=== PATIENT | female | born 2000 | race Caucasian/White ===

== ENCOUNTER 2022-08-10 15:24 | Outpatient (REF) | payer OTHER, SELFPAY ==
[2022-08-10 18:35] LABS: Lipase 15 U/L (8-78)
[2022-08-10 19:13] LABS: Vitamin B12 834 pg/mL (200-900)
[2022-08-13 16:43] LABS: Transglutaminase Ab IgG <1.0 U/mL; Transglutaminase IgA <1.0 U/mL
[2022-08-16 15:13] LABS: Vitamin D 25-OH, D2 <4 ng/mL; Vitamin D 25-OH, D3 16 ng/mL; Vitamin D 25-OH, Total 16 ng/mL (30-100)
== END 2022-08-10 15:25 | disposition home or self-care (01) ==
LOC: HO.LAB 15:24
PROVIDERS: PCP Pediatrics Adolescent Medicine; Visit Provider Nurse Practitioner Family
DX: R10.9 Unspecified abdominal pain (principal); E55.9 Vitamin D deficiency, unspecified; R19.7 Diarrhea, unspecified; K29.70 Gastritis, unspecified, without bleeding
CPT/HCPCS: 36415; 82306; 82607; 82746; 83690; 86364; 99202

== ENCOUNTER 2022-08-27 14:05 | Outpatient (REF) | payer OTHER, SELFPAY ==
[2022-09-02 09:08] LABS: H Pylori Breath Test Negative (Negative)
== END 2022-08-27 14:06 | disposition home or self-care (01) ==
LOC: HO.LNP 14:05
PROVIDERS: PCP Pediatrics Adolescent Medicine; Visit Provider Nurse Practitioner Family
DX: K21.9 Gastro-esophageal reflux disease without esophagitis (principal); K59.01 Slow transit constipation; R10.13 Epigastric pain; R11.0 Nausea; R79.89 Other specified abnormal findings of blood chemistry; K29.70 Gastritis, unspecified, without bleeding
CPT/HCPCS: 36415; 83013; 99212

== ENCOUNTER 2022-09-21 11:05 | Day surgery (SDC) | payer OTHER, SELFPAY ==
[2022-09-17 08:20] VITALS: BMI 27.6
[2022-09-21 11:54] VITALS: BMI 26.9
--- NOTE | 2022-09-21 12:05 | MHC.SHP ---
Pre-Procedural Eval Section A Date of Service: 09/21/22 The patient is an INPATIENT: No Changes since office visit: Yes Patient answered all questions; No Cold of Flu in the past 2 weeks, No New Medical Problems and No Changes in Medication The History & Physical has been completed within 30 days and I have reviewed it.: Yes Section B Chief Complaint: Gastro-esophageal reflux disease w/out esophagitis Allergies: Allergies Allergy/AdvReac Type Severity Reaction Status Date / Time sesame seed Allergy Intermediate Itching Verified 09/21/22 11:53 Plan I have reviewed the history and physical and performed a pertinent physical examination on my patient. No changes have occurred unless specified. Time Spent With Patient Time: Total time managing care of this patient today ____ minutes.
[2022-09-21 12:15] VITALS: BP 105/65; PULSE 60; RESP 16; TEMP 36.7; O2SAT 99
[2022-09-21] MEDS: Lactated Ringers 1,000 ML 100 ML IVCONT (12:22)
[2022-09-21 12:35] LABS: UPreg QC Valid YES; Urine Pregnancy NEGATIVE (NEGATIVE)
--- NOTE | 2022-09-21 12:58 | HO.ANESPROP2 ---
FORMERLY [facility] Family History Family History Maternal Aunt Cancer Maternal Uncle High cholesterol Maternal Grandfather High cholesterol Surgical History Surgical History (Updated 09/21/22 @ 11:53 by Gwen Bishop) History of nasal surgery Hx of tonsillectomy Social History Social History Household Members: Family Unable to assess alcohol history related to: Unable to respond Patient Tobacco Use Status: Never used Tobacco Use of substances other than those prescribed or required for medical reasons: No Are you DNR?: No Advance Directives: No Advance Directives Information Provided: Yes Meds Allergies Allergy/AdvReac Type Severity Reaction Status Date / Time sesame seed Allergy Intermediate Itching Verified 09/21/22 11:53 Active Medications: Current Medications Lactated Ringer's (Lr) 1,000 mls @ 100 mls/hr IVCONT .Q10H ARMIDA Last Admin: 09/21/22 12:22 Dose: 100 mls/hr Ondansetron HCl (Ondansetron Hcl 4 Mg/2 Ml Vial) 4 mg IVPUSH ONCE PRN PRN Reason: Nausea and Vomiting Exam Exam Date and Time: September 21, 2022 1258 Height,Weight and Vital Signs: Height 5 ft 3 in Weight 68.946 kg Last Vital Signs Temp 98.0 F 09/21/22 12:15 Pulse 60 09/21/22 12:15 Resp 16 09/21/22 12:15 BP 105/65 09/21/22 12:15 Pulse Ox 99 09/21/22 12:15 O2 Del Method Room Air 09/21/22 12:15 Pertinent Lab Results Pertinent Lab Results: Laboratory Tests 09/21/22 12:00 Urine Test NEGATIVE
--- NOTE | 2022-09-21 13:14 | P.CONAN_ITS ---
[facility] Past Medical History Patient : No Family History Family History Maternal Aunt Cancer Maternal Uncle High cholesterol Maternal Grandfather High cholesterol Family history of problems with anesthesia: No Surgical History Surgical History History of nasal surgery Hx of tonsillectomy History of Problems with Anesthesia: No Social History Social History Household Members: Family Unable to assess alcohol history related to: Unable to respond Patient Tobacco Use Status: Never used Tobacco Use of substances other than those prescribed or required for medical reasons: No Are you DNR?: No Advance Directives: No Advance Directives Information Provided: Yes Meds Allergies Allergy/AdvReac Type Severity Reaction Status Date / Time sesame seed Allergy Intermediate Itching Verified 09/21/22 11:53 Active Medications: Current Medications Lactated Ringer's (Lr) 1,000 mls @ 100 mls/hr IVCONT .Q10H ARMIDA Last Admin: 09/21/22 12:22 Dose: 100 mls/hr Ondansetron HCl (Ondansetron Hcl 4 Mg/2 Ml Vial) 4 mg IVPUSH ONCE PRN PRN Reason: Nausea and Vomiting Exam Exam Date and Time: September 21, 2022 1314 Height,Weight and Vital Signs: Height 5 ft 3 in Weight 68.946 kg Last Vital Signs Temp 98.0 F 09/21/22 12:15 Pulse 60 09/21/22 12:15 Resp 16 09/21/22 12:15 BP 105/65 09/21/22 12:15 Pulse Ox 99 09/21/22 12:15 O2 Del Method Room Air 09/21/22 12:15 Pertinent Lab Results Pertinent Lab Results: Laboratory Tests 09/21/22 12:00 Urine Test NEGATIVE Airway Mallampati Class: III TM Dist: >3cm Loose/Missing/Broken Teeth: No Heart: rrr Lungs: clear Assessment and Plan Final Anesthetic Review Family History of Problems with Anesthesia: No History of Problems with Anesthesia: No NPO: Yes ASA Class: II Final Preanesthetic Review: No Changes in Pt Med Stat, Meds/Allgs Chart Reviewed, Consent Obtained/Reviewed and Anes Risks/Benef Reviewed Patient Risk: Low Procedure Risk: Low Anesthetic Plan Anesthetic Plan: MAC: Disposition: Standard PACU
--- NOTE | 2022-09-21 13:27 | P.OP_ITS ---
Operative Note Operative Note Date of Service: 09/21/22 Narrative: FLEXIBLE TRANSORAL UPPER GASTROINTESTINAL ENDOSCOPY WITH BIOPSIES Pre-op diagnosis: Epigastric pain, nausea Post-op diagnosis: Gastritis with gastric antral erosions Endoscopist:? Shelia Boudreaux MD Anesthesia:?MAC Consent: Indications for the procedure and potential complications of bleeding, perforation, reaction to medications and missed diagnosis were discussed with the patient and informed consent was obtained. Instrument: Olympus GIF H 190 mid size upper endoscope Monitoring: Vital signs and clinical assessment, continuous EKG monitoring, Pulse oximetry, Carbon Dioxide monitoring and blood pressure monitoring were done throughout the procedure. Procedure: The patient was placed in the left lateral decubitis position and pre-procedure medications were administered and a bite block was placed. The endoscope was inserted into the mouth and advanced under direct vision to the third part of duodenum. A careful inspection was made as the upper endoscope was withdrawn including a retroflexed examination of the proximal stomach; Findings and interventions are described below. Findings: Larynx: Normal Esophagus: GE junction at 36 cms. No esophagitis or Funez's. Stomach: Mild gastric erythema with multiple linear erosions in the antrum. Biopsies were obtained. Grade 2 flap valve on retroflexed examination of the cardia. Duodenum: Normal bulb and descending duodenum. Biopsies were obtained from 3rd part of the duodenum to check for celiac sprue Intervention: Biopsies as noted above Impression and Post Procedure Diagnosis: Endoscopy Findings: STOMACH: Mild gastric erythema with multiple linear erosions in the antrum. DUODENUM: Normal - biopsied to check for celiac sprue Plan: Await pathology results Patient has an appointment on 10/04/22 in the GI Clinic with Julia Carreno FNP- [facility] . Above findings were reviewed with the patient and Gastritis handout was given in the discharge area
--- NOTE | 2022-09-21 13:27 | PC.NURSE ---
Patients mother at bedside per patient request. Patient states I am extremely nervous and have a learning disability . Okayed per Lenny.
[2022-09-21 13:48] VITALS: BP 93/50; PULSE 81; RESP 22; TEMP 36.6; O2SAT 93
[2022-09-21 14:13] VITALS: BP 102/65; PULSE 69; RESP 18; TEMP 36.1; O2SAT 98
== END 2022-09-21 14:26 | disposition home or self-care (01) ==
PROVIDERS: Anesthesiology; PCP Pediatrics Adolescent Medicine; Visit Provider Internal Medicine Gastroenterology
PROC: 0DJ08ZZ Inspection of Upper Intestinal Tract, Via Natural or Artificial Opening Endoscopic (ICD-10-PCS; CPT 43235; principal; 2022-09-21 12:50)
DX: K29.50 Unspecified chronic gastritis without bleeding (principal); K25.9 Gastric ulcer, unspecified as acute or chronic, without hemorrhage or perforation; K21.9 Gastro-esophageal reflux disease without esophagitis; K59.01 Slow transit constipation; K59.00 Constipation, unspecified; R79.89 Other specified abnormal findings of blood chemistry
CPT/HCPCS: 43239; 81025; 88305; 88342

== ENCOUNTER → 2022-09-21 11:05 | Outpatient (BNV) | payer OTHER, SELFPAY | PROVIDERS: PCP Pediatrics Adolescent Medicine; Visit Provider Internal Medicine Gastroenterology | DX: K25.9 Gastric ulcer, unspecified as acute or chronic, without hemorrhage or perforation (principal) | CPT/HCPCS: 43239 ==

== ENCOUNTER 2022-10-11 10:47 | Outpatient (AMB) | payer OTHER, SELFPAY ==
--- NOTE | 2022-10-11 10:55 | MHC.OFFVIS ---
Intake Vital Signs 10/11/22 10:57 Height 5 ft 3 in Weight 161 lb 6.054 oz BMI 28.6 BP 101/61 Blood Pressure Location Lt brachial Position Sitting Pulse 89 Intake Visit Reasons: EGD results Intake Note: Rashad presents in office as a est.patient for a f/u for EGD results PT CC: pt reports having nausea, vomiting, epigastric pain pt denies any other GI Issues Professional Builder Required: No Accompanied by: Significant Other Allergies sesame seed Allergy (Intermediate, Verified 10/11/22 10:55) Itching HPI EGD results HPI Details LAST VISIT GERD (gastroesophageal reflux disease) H pylori testing in the office today. Patient will take pantoprazole in the morning half an hour before breakfast. Patient was encouraged to eat breakfast. She will take famotidine at bedtime. Avoid late night snacking and dietary triggers. Staying upright for minimal 3 hours after meals discussed with patient. Constipation Patient reports that she is moving her bowels better now. Encourage patient to eat more fruits and vegetables Postprandial epigastric pain Occasional postprandial epigastric discomfort. H pylori testing today. Will treat empirically if positive. Will send patient for upper endoscopy to evaluate for gastritis, duodenitis, esophagitis, gastric or peptic ulcers, H pylori. Nausea Patient reports nausea in the morning. Patient was encouraged to take pantoprazole in the morning and Pepcid at night time. Avoid late night snacking and dietary triggers. Avoid food that is spicy. I will see patient after the procedure, sooner on as needed basis. Patient is agreeable to this plan and verbalizes understanding of instructions. She was given the opportunity to ask questions and all questions answered. ? Thank you for allowing me to participate in her care Plan Medications New pantoprazole take one tablet half an hour before breakfast 40 mg PO DAILY 30 tabs 2RF K21.9 cholecalciferol (vitamin D3) 50 mcg PO DAILY 90 caps 3RF R79.89 Changed From famotidine (Pepcid) 20 mg PO BID 60 tabs 3RF K29.70 To famotidine (Pepcid) 20 mg PO BEDTIME 30 tabs 3RF K29.70 UPPER ENDOSCOPY Findings: Larynx:? Normal Esophagus: GE junction at 36 cms. No esophagitis or Funez's. Stomach: Mild gastric erythema with multiple linear erosions in the antrum. Biopsies were obtained. Grade 2 flap valve on retroflexed examination of the cardia. Duodenum: Normal bulb and descending duodenum. Biopsies were obtained from 3rd part of the duodenum to check for celiac sprue Intervention: Biopsies as noted above Impression and Post Procedure Diagnosis: Endoscopy Findings: STOMACH: Mild gastric erythema with multiple linear erosions in the antrum. DUODENUM: Normal - biopsied to check for celiac sprue Plan: Above findings were reviewed with the patient and Gastritis handout was given in the discharge area PATHOLOGY RESULTS Diagnosis A.? Small bowel, biopsy:? Duodenal mucosa within normal limits; negative for celiac disease. B.? Stomach, antrum, biopsy:? Antral-type mucosa with mild chronic inactive inflammation; no Helicobacter organisms seen. TODAY'S VISIT Patient is here today for follow-up and to discuss upper endoscopy results. Patient reports that she continues to have epigastric pain specially in the morning as well as occasional nausea. Patient also reports dyspepsia occasional without dysphagia or odynophagia. Patient is avoiding spicy food. Change her diet. However she reports to me that she does not take pantoprazole at all only if she needs that. Patient is taking famotidine at bedtime. Patient denies any abdominal pain or discomfort. Reports that she is moving her bowels well. Upper endoscopy and biopsy results discussed with patient. [facility] Surgical History History of esophagogastroduodenoscopy (EGD) History of nasal surgery Hx of tonsillectomy Family History Maternal Aunt Cancer Maternal Uncle High cholesterol Maternal Grandfather High cholesterol Social History Household Members: Family Unable to assess alcohol history related to: Unable to respond Patient Tobacco Use Status: Never used Tobacco Review of Systems Const Denies weight gain and Denies weight loss ENT Reports no additional complaints, Denies dysphagia and Denies odynophagia Card Reports no additional complaints Resp Reports no additional complaints GI Denies abdominal pain, Denies belching, Denies melena, Denies bloating, Denies change in bowel habits, Denies dysphagia, Denies excessive flatus, Reports dyspepsia, Reports heartburn, Denies diarrhea, Denies loose stools, Reports nausea (Occasional in the morning), Denies odynophagia and Denies vomiting Reports no additional complaints Musc Reports no additional complaints Neuro Reports no additional complaints Psych Reports no additional complaints Endo Reports no additional complaints Physical Exam Vital Signs: Last Vital Signs Pulse 89 10/11/22 10:57 BP 101/61 10/11/22 10:57 BMI result Body Mass Index 28.6 Const General: healthy appearing, no acute distress and well developed Nutritional Appearance: well nourished Orientation/consciousness: patient oriented x3 HEENT Head: Yes normal to inspection, Yes normocephalic and Yes atraumatic Face and sinus: Yes normal facial exam Mouth: Normal oral and palatal mucosa present Throat: Yes posterior oropharynx normal, Yes tonsils normal and Yes uvula midline Eyes General: appearance normal, both eyes and all related structures Neck Neck: Yes normal visual inspection, Yes full ROM and Yes trachea midline Thyroid: Thyroid normal Resp Effort & Inspection: normal respiratory effort, able to speak in complete sentences, no tracheal deviation and symmetric chest movement Auscultation: clear to auscultation bilaterally Cardio Rate: regular rate Heart sounds: S1 normal heart sound present and S2 normal heart sound present GI Inspection: Yes normal to inspection and No distended Palpation (GI): Soft to palpation, not firm, nontender and No hepatosplenomegaly present Auscultation: normal bowel sounds General: Yes no CVA tenderness Back/Spine/Pelvis Back: no CVA tenderness Skin General skin exam: elasticity normal, turgor normal and dry skin Neuro General: patient oriented x3 Psych Appearance: grossly normal Mental Status: mental status grossly normal Speech and movement: Normal speech and movement present Assessment & Plan Assessment & Plan (1) GERD (gastroesophageal reflux disease): Code(s): K21.9 - Gastro-esophageal reflux disease without esophagitis Qualifiers: Esophagitis presence: without esophagitis Qualified Code(s): K21.9 - Gastro-esophageal reflux disease without esophagitis Plan: Continue pantoprazole every morning half an hour before breakfast. Patient can take sucralfate at bedtime. She can stop taking famotidine for now. Mild gastritis without esophagitis found. Patient can continue avoiding dietary triggers on late night snacking. Staying upright for minimal 3 hours after meals discussed with patient. (2) Postprandial epigastric pain: Code(s): R10.13 - Epigastric pain Plan: Postprandial epigastric pain continues. Patient was encouraged to be consistent with taking her pantoprazole every morning half an hour before breakfast. Patient can also take sucralfate at bedtime. (3) Nausea: Code(s): R11.0 - Nausea Plan: Patient was encouraged to avoid eating late at night. Continue consistent treatment with pantoprazole and sucralfate. I will see patient in 2 months, sooner on as needed basis. Patient is agreeable to plan of care and verbalizes understanding of instructions. She was given the opportunity to ask questions and all questions answered. Thank you for allowing me to participate in her care Medications: New sucralfate 1 g PO BEDTIME 30 tabs 4RF R19.7 - Diarrhea, unspecified Refilled pantoprazole take one tablet half an hour before breakfast 40 mg PO DAILY 30 tabs 2RF K21.9 - Gastro-esophageal reflux disease without esophagitis Discontinued famotidine (Pepcid) Discontinued Reason: Doctor's Order 20 mg PO BEDTIME 30 tabs 3RF K29.70 - Gastritis, unspecified, without bleeding Coding Level of Care Code Est Pt Level 4 (05153) Diagnoses GERD (gastroesophageal reflux disease) K21.9 Esophagitis presence: without esophagitis Postprandial epigastric pain R10.13 Nausea R11.0 Time Spent (min) 35 Comment 20 minutes spent with patient and additional 15 minutes spent reviewing her records
[2022-10-11 10:57] VITALS: BP 101/61; PULSE 89; BMI 28.6
== END 2022-10-11 11:14 | disposition home or self-care (01) ==
PROVIDERS: PCP Pediatrics Adolescent Medicine; Visit Provider Nurse Practitioner Family
DX: K21.9 Gastro-esophageal reflux disease without esophagitis (principal); R10.13 Epigastric pain; R11.0 Nausea
CPT/HCPCS: 99214

== ENCOUNTER → 2022-10-11 10:47 | Outpatient (BNVA) | payer OTHER, SELFPAY | PROVIDERS: PCP Pediatrics Adolescent Medicine; Visit Provider Nurse Practitioner Family | DX: K21.9 Gastro-esophageal reflux disease without esophagitis (principal); R10.13 Epigastric pain; R11.0 Nausea; Z79.899 Other long term (current) drug therapy | CPT/HCPCS: 99212 ==

== ENCOUNTER 2023-02-11 09:02 | Outpatient (AMB) | payer MEDICAID, SELFPAY ==
--- NOTE | 2023-02-11 09:15 | MHC.OFFVIS ---
Intake Vital Signs 02/11/23 09:19 Height 5 ft 3 in Weight 162 lb BMI 28.7 BP 110/70 Blood Pressure Location Lt brachial Position Sitting Pulse 85 Intake Visit Reasons: ER follow up Intake Note: Patient ER [facility] due N/V with abdominal pain. Patient cc: N/V with blood, abdominal pain with bloating, heartburn with burning sensation, and constipation. Patient have sme test at [facility] last week. [place] Required: No Accompanied by: Mother Allergies sesame seed Allergy (Intermediate, Verified 02/11/23 09:14) Itching HPI ER follow up HPI Details LAST VISIT: 10/11/2022 GERD (gastroesophageal reflux disease) Continue pantoprazole every morning half an hour before breakfast. Patient can take sucralfate at bedtime. She can stop taking famotidine for now. Mild gastritis without esophagitis found. Patient can continue avoiding dietary triggers on late night snacking. Staying upright for minimal 3 hours after meals discussed with patient. Postprandial epigastric pain Postprandial epigastric pain continues. Patient was encouraged to be consistent with taking her pantoprazole every morning half an hour before breakfast. Patient can also take sucralfate at bedtime. Nausea Patient was encouraged to avoid eating late at night. Continue consistent treatment with pantoprazole and sucralfate. I will see patient in 2 months, sooner on as needed basis. Patient is agreeable to plan of care and verbalizes understanding of instructions. She was given the opportunity to ask questions and all questions answered. ? Thank you for allowing me to participate in her care Plan Medications New sucralfate 1 g PO BEDTIME 30 tabs 4RF R19.7 - Diarrhea, unspecified Refilled pantoprazole take one tablet half an hour before breakfast 40 mg PO DAILY 30 tabs 2RF K21.9 - Gastro-esophageal reflux disease without esophagitis Discontinued famotidine (Pepcid) Discontinued Reason: Doctor's Order 20 mg PO BEDTIME 30 tabs 3RF K29.70 - Gastritis, unspecified, without bleeding TODAY'S VISIT Patient is here today requesting a visit after room seen in the ER at [facility] last week. Patient missed her appointment in November for follow-up. Apparently patient has had trouble with insurance, no insurance at this time and unable to get her medications for acid reflux. Patient was unable to get pantoprazole or sucralfate. Diagnosed with gastritis back in September of 2022. Last week patient had episode of nausea and vomiting. Epigastric discomfort. Seen in emergency department where essentially all her testing was negative. Patient had no leukocytosis, CT scan was normal. Normal exam without any suspicion for any acute processes. Patient was sent home on nausea medicine. Patient is unable to get her nausea medications due to inactive insurance at this time. Patient's mother is trying to get the insurance under control. She is present during this visit. Patient reports postprandial epigastric discomfort, nausea, occasional vomiting. Patient denies any dysphagia or odynophagia. Admits to dyspepsia. Patient admits to smoking marijuana. Not sure if this is related to that or not. Patient does admit to epigastric burning. [facility] Surgical History History of esophagogastroduodenoscopy (EGD) History of nasal surgery Hx of tonsillectomy Family History Maternal Aunt Cancer Maternal Uncle High cholesterol Maternal Grandfather High cholesterol Social History Household Members: Family Unable to assess alcohol history related to: Unable to respond Patient Tobacco Use Status: Never used Tobacco Review of Systems Const Denies weight gain and Denies weight loss ENT Reports no additional complaints, Denies dysphagia and Denies odynophagia Card Reports no additional complaints Resp Reports no additional complaints GI Reports abdominal pain (Epigastric), Denies belching, Denies melena, Reports bloating, Denies change in bowel habits, Reports constipation, Denies dysphagia, Denies excessive flatus, Reports dyspepsia, Reports heartburn, Denies diarrhea, Denies loose stools, Reports nausea, Denies odynophagia and Denies vomiting Musc Reports no additional complaints Neuro Reports no additional complaints Psych Reports no additional complaints Endo Reports no additional complaints Physical Exam Vital Signs: Last Vital Signs Pulse 85 02/11/23 09:19 BP 110/70 02/11/23 09:19 BMI result Body Mass Index 28.7 Const General: healthy appearing, no acute distress and well developed Nutritional Appearance: well nourished Orientation/consciousness: patient oriented x3 HEENT Head: Yes normal to inspection, Yes normocephalic and Yes atraumatic Face and sinus: Yes normal facial exam Mouth: Normal oral and palatal mucosa present Throat: Yes posterior oropharynx normal, Yes tonsils normal and Yes uvula midline Eyes General: appearance normal, both eyes and all related structures Neck Neck: Yes normal visual inspection, Yes full ROM and Yes trachea midline Thyroid: Thyroid normal Resp Effort & Inspection: normal respiratory effort, able to speak in complete sentences, no tracheal deviation and symmetric chest movement Auscultation: clear to auscultation bilaterally Cardio Rate: regular rate GI Inspection: Yes normal to inspection and No distended Palpation (GI): Soft to palpation, not firm, nontender and No hepatosplenomegaly present Auscultation: normal bowel sounds General: Yes no CVA tenderness Back/Spine/Pelvis Back: no CVA tenderness Skin General skin exam: elasticity normal, turgor normal and dry skin Neuro General: patient oriented x3 Psych Appearance: grossly normal Mental Status: mental status grossly normal Assessment & Plan Assessment & Plan (1) GERD (gastroesophageal reflux disease): Code(s): K21.9 - Gastro-esophageal reflux disease without esophagitis Qualifiers: Esophagitis presence: without esophagitis Qualified Code(s): K21.9 - Gastro-esophageal reflux disease without esophagitis (2) Postprandial epigastric pain: Code(s): R10.13 - Epigastric pain (3) Nausea: Code(s): R11.0 - Nausea Plan Will try to see if patient can get her medications. If she does not have an active insurance and pharmacy will not cover. Patient can take smaller dose of Pepcid at night time and low-dose pantoprazole available [id number]. Patient will be given script for Zofran as well. Discussed with patient avoiding dietary triggers a late night snacking. Staying upright for minimum 3 hours after meals discussed with patient. Patient will follow-up in the office in 2-3 weeks, sooner on as needed basis. Patient will call our office if she will continue to have symptoms. Both patient and her mother are agreeable to plan of care and verbalizes understanding of instructions. They were given the opportunity to ask questions and all questions answered. Thank you for allowing me to participate in her care Medications: New ondansetron 4 mg PO Q8H PRN 20 tabs 0RF nausea and vomiting R11.0 - Nausea Changed From sucralfate 1 g PO BEDTIME 30 tabs 4RF R19.7 - Diarrhea, unspecified To sucralfate 1 g PO BID 60 tabs 4RF R19.7 - Diarrhea, unspecified Refilled pantoprazole take one tablet half an hour before breakfast 40 mg PO DAILY 30 tabs 2RF K21.9 - Gastro-esophageal reflux disease without esophagitis Coding Level of Care Code Est Pt Level 4 (23282) Diagnoses Gastroesophageal reflux disease without esophagitis K21.9 Esophagitis presence: without esophagitis Postprandial epigastric pain R10.13 Nausea R11.0 Time Spent (min) 35 Comment 20 minutes spent with patient and additional 15 minutes spent reviewing her records
[2023-02-11 09:19] VITALS: BP 110/70; PULSE 85; BMI 28.7
== END 2023-02-11 10:03 | disposition home or self-care (01) ==
PROVIDERS: PCP Pediatrics Adolescent Medicine; Visit Provider Nurse Practitioner Family
DX: K21.9 Gastro-esophageal reflux disease without esophagitis (principal); R10.13 Epigastric pain; R11.0 Nausea
CPT/HCPCS: 99214

== ENCOUNTER → 2023-02-11 09:02 | Outpatient (BNVA) | payer MEDICAID, SELFPAY | PROVIDERS: PCP Pediatrics Adolescent Medicine; Visit Provider Nurse Practitioner Family | DX: K21.9 Gastro-esophageal reflux disease without esophagitis (principal); R10.13 Epigastric pain; R11.0 Nausea | CPT/HCPCS: 99212 ==

== ENCOUNTER 2023-03-01 09:52 | Outpatient (AMB) | payer OTHER, SELFPAY ==
--- NOTE | 2023-03-01 10:15 | MHC.OFFVIS ---
Intake Vital Signs 03/01/23 10:16 Height 5 ft 3 in Weight 163 lb 2.273 oz BMI 28.9 BP 118/73 Blood Pressure Location Lt brachial Position Sitting Pulse 79 Intake Visit Reasons: 2 Month Follow up Intake Note: Rashad presents in the office as a 2 month follow up. CC: She states that she is still having the same symptoms as her last visit. Allergies sesame seed Allergy (Intermediate, Verified 03/01/23 10:17) Itching HPI 2 Month Follow up HPI Details LAST VISIT: GERD (gastroesophageal reflux disease) Postprandial epigastric pain Nausea Plan Will try to see if patient can get her medications. If she does not have an active insurance and pharmacy will not cover. Patient can take smaller dose of Pepcid at night time and low-dose pantoprazole available [id number]. Patient will be given script for Zofran as well. Discussed with patient avoiding dietary triggers a late night snacking. Staying upright for minimum 3 hours after meals discussed with patient. Patient will follow-up in the office in 2-3 weeks, sooner on as needed basis. Patient will call our office if she will continue to have symptoms. Both patient and her mother are agreeable to plan of care and verbalizes understanding of instructions. They were given the opportunity to ask questions and all questions answered. ? Thank you for allowing me to participate in her care Medications New ondansetron 4 mg PO Q8H PRN 20 tabs 0RF nausea and vomiting R11.0 Changed Changed From sucralfate 1 g PO BEDTIME 30 tabs 4RF R19.7 Changed To sucralfate 1 g PO BID 60 tabs 4RF R19.7 Refilled pantoprazole take one tablet half an hour before breakfast 40 mg PO DAILY 30 tabs 2RF K21.9 TODAY'S VISIT Patient is here today for follow-up. Patient is accompanied by her mother. Patient was able to get her insurance straighten out in she was able to get her medications. Patient is taking pantoprazole in the morning and sucralfate twice a day. Patient states that in the morning when she wakes up she has a epigastric discomfort and feels nauseous. Patient frequently has nausea and vomits from time to time. Patient's mom reports that she does not have much appetite because she is afraid that when she eats she will have abdominal pain and she will vomit. Patient admits that she is not moving her bowels. Patient states that she is constipated. Patient stopped vaping and is not smoking any marijuana anymore. Patient denies any fever or chills. [facility] Surgical History History of esophagogastroduodenoscopy (EGD) History of nasal surgery Hx of tonsillectomy Family History Maternal Aunt Cancer Maternal Uncle High cholesterol Maternal Grandfather High cholesterol Social History Household Members: Family Unable to assess alcohol history related to: Unable to respond Patient Tobacco Use Status: Never used Tobacco Review of Systems Const Denies weight gain and Denies weight loss ENT Reports no additional complaints, Denies dysphagia and Denies odynophagia Card Reports no additional complaints Resp Reports no additional complaints GI Reports abdominal pain (epigastric), Denies belching, Denies melena, Reports bloating, Denies change in bowel habits, Reports constipation, Denies dysphagia, Denies excessive flatus, Reports dyspepsia, Reports heartburn, Denies diarrhea, Denies loose stools, Denies nausea, Denies odynophagia and Denies vomiting Reports no additional complaints Musc Reports no additional complaints Neuro Reports no additional complaints Psych Reports no additional complaints Endo Reports no additional complaints Physical Exam Vital Signs: Last Vital Signs Pulse 79 03/01/23 10:16 BP 118/73 03/01/23 10:16 BMI result Body Mass Index 28.9 Const General: healthy appearing, no acute distress and well developed Nutritional Appearance: well nourished Orientation/consciousness: patient oriented x3 Resp Effort & Inspection: normal respiratory effort, able to speak in complete sentences, no tracheal deviation and symmetric chest movement Auscultation: clear to auscultation bilaterally Cardio Rate: regular rate GI Inspection: Yes normal to inspection and No distended Palpation (GI): Soft to palpation, not firm, nontender and No hepatosplenomegaly present Auscultation: normal bowel sounds General: Yes no CVA tenderness Back/Spine/Pelvis Back: no CVA tenderness Skin General skin exam: elasticity normal, turgor normal and dry skin Neuro General: patient oriented x3 Psych Appearance: grossly normal Mental Status: mental status grossly normal Assessment & Plan Assessment & Plan (1) GERD (gastroesophageal reflux disease): Code(s): K21.9 - Gastro-esophageal reflux disease without esophagitis Qualifiers: Esophagitis presence: esophagitis presence not specified Qualified Code(s): K21.9 - Gastro-esophageal reflux disease without esophagitis (2) Postprandial epigastric pain: Code(s): R10.13 - Epigastric pain (3) Nausea: Code(s): R11.0 - Nausea (4) Constipation: Code(s): K59.00 - Constipation, unspecified Qualifiers: Constipation type: slow transit constipation Qualified Code(s): K59.01 - Slow transit constipation Plan Will change pantoprazole to as omeprazole. Patient can continue taking sucralfate twice a day. We will schedule upper endoscopy. Continue taking Zofran on as needed basis. Small meals, avoid dietary triggers. Patient is not moving her bowels and we will send script for Dulcolax. Patient was encouraged to take 2 every evening. I will see patient in 3 weeks. Patient will be scheduled for upper endoscopy. Last endoscopy was done in September of 2022 that showed mi inactive gastritis with gastric erythema without what denied as, biopsy negative for celiac. Most likely patient's symptoms were aggravated by smoking and vaping marijuana. CHS most likely. Aggravated and patient needs to take her medications as ordered. Patient was a needs to drink fluids.. Both patient and her mother are agreeable to plan of care and verbalized understanding of instructions. They were given the opportunity to ask questions all questions answered. Thank you for allowing me to participate in her care Medications: New bisacodyl (Dulcolax (bisacodyl)) 10 mg (2 x 5 mg) PO BEDTIME 180 tabs 4RF esomeprazole magnesium (Nexium) 40 mg PO DAILY 30 caps 5RF K21.9 - Gastro-esophageal reflux disease without esophagitis Discontinued pantoprazole take one tablet half an hour before breakfast Discontinued Reason: Doctor's Order 40 mg PO DAILY 30 tabs 2RF K21.9 - Gastro-esophageal reflux disease without esophagitis Coding Level of Care Code Est Pt Level 4 (81378) Diagnoses Gastroesophageal reflux disease, unspecified whether esophagitis present K21.9 Esophagitis presence: esophagitis presence not specified Postprandial epigastric pain R10.13 Nausea R11.0 Slow transit constipation K59.01 Constipation type: slow transit constipation Time Spent (min) 40 Comment 25 minute spent with patient and additional 15 minutes spent reviewing her records
[2023-03-01 10:16] VITALS: BP 118/73; PULSE 79; BMI 28.9
== END 2023-03-01 11:10 | disposition home or self-care (01) ==
PROVIDERS: PCP Pediatrics Adolescent Medicine; Visit Provider Nurse Practitioner Family
DX: K21.9 Gastro-esophageal reflux disease without esophagitis (principal); R10.13 Epigastric pain; R11.0 Nausea; K59.01 Slow transit constipation
CPT/HCPCS: 99214

== ENCOUNTER → 2023-03-01 09:52 | Outpatient (BNVA) | payer OTHER, SELFPAY | PROVIDERS: PCP Pediatrics Adolescent Medicine; Visit Provider Nurse Practitioner Family | DX: K21.9 Gastro-esophageal reflux disease without esophagitis (principal); K59.01 Slow transit constipation; R10.13 Epigastric pain; R11.0 Nausea | CPT/HCPCS: 99212 ==

== ENCOUNTER 2023-03-22 11:56 | Outpatient (AMB) | payer OTHER, SELFPAY ==
--- NOTE | 2023-03-22 12:02 | MHC.OFFVIS ---
Intake Vital Signs 03/22/23 12:05 Height 5 ft 3.5 in Weight 168 lb BMI 29.3 BP 109/59 L Blood Pressure Location Lt brachial Position Sitting Pulse 82 Intake Visit Reasons: 3 week follow up Intake Note: Patient follow up for constipation. Patient cc: nauseas and vomit, little abdominal pain, and denies any other GI issues. 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 Patient can continue taking sucralfate twice a day. We will schedule upper endoscopy. Continue taking Zofran on as needed basis. Small meals, avoid dietary triggers. Patient is not moving her bowels and we will send script for Dulcolax. Patient was encouraged to take 2 every evening. I will see patient in 3 weeks. Patient will be scheduled for upper endoscopy. Last endoscopy was done in September of 2022 that showed mi inactive gastritis with gastric erythema without what denied as, biopsy negative for celiac. Most likely patient's symptoms were aggravated by smoking and vaping marijuana. CHS most likely. Aggravated and patient needs to take her medications as ordered. Patient was a needs to drink fluids.. Both patient and her mother are agreeable to plan of care and verbalized understanding of instructions. They were given the opportunity to ask questions all questions answered. ? Thank you for allowing me to participate in her care Medications New bisacodyl (Dulcolax (bisacodyl)) 10 mg (2 x 5 mg) PO BEDTIME 180 tabs 4RF esomeprazole magnesium (Nexium) 40 mg PO DAILY 30 caps 5RF K21.9 Discontinued pantoprazole take one tablet half an hour before breakfast Discontinued Reason: Doctor's Order 40 mg PO DAILY 30 tabs 2RF K21.9 TODAY'S VISIT Patient is here today for follow-up. Patient is accompanied by her mother. Patient reports that she started taking Nexium and every time she took it she had migraine. Patient denies any history of migraine headaches. Patient states that she took it for 2 days and stop. Patient states that she continues to take sucralfate twice a day in her symptoms of acid reflux have suppressed a low. Occasional nausea and dyspepsia without dysphagia or odynophagia. Patient has upper endoscopy scheduled for end of March. Patient currently is taking Augmentin for cellulitis and has 3 more doses left. Patient denies any abdominal pain or discomfort. Reports that she has been moving her bowels better now denies any other GI concerning symptoms. [facility] Surgical History History of esophagogastroduodenoscopy (EGD) History of nasal surgery Hx of tonsillectomy Family History Maternal Aunt Cancer Maternal Uncle High cholesterol Maternal Grandfather High cholesterol Social History Household Members: Family Unable to assess alcohol history related to: Unable to respond Patient Tobacco Use Status: Never used Tobacco Review of Systems Const Denies weight gain and Denies weight loss ENT Reports no additional complaints, Denies dysphagia and Denies odynophagia Card Reports no additional complaints Resp Reports no additional complaints GI Reports abdominal pain (epigastric), Denies belching, Denies melena, Denies bloating, Denies change in bowel habits, Denies dysphagia, Denies excessive flatus, Denies dyspepsia, Reports heartburn (Occasional), Denies diarrhea, Denies loose stools, Denies nausea, Denies odynophagia and Denies vomiting Reports no additional complaints Musc Reports no additional complaints Neuro Reports no additional complaints Psych Reports no additional complaints Endo Reports no additional complaints Physical Exam Vital Signs: Last Vital Signs Pulse 82 03/22/23 12:05 BP 109/59 L 03/22/23 12:05 BMI result Body Mass Index 29.3 Const General: healthy appearing, no acute distress and well developed Nutritional Appearance: obese Orientation/consciousness: patient oriented x3 Resp Effort & Inspection: normal respiratory effort, able to speak in complete sentences, no tracheal deviation and symmetric chest movement Auscultation: clear to auscultation bilaterally Cardio Rate: regular rate GI Inspection: Yes normal to inspection, No distended and Yes obesity Palpation (GI): Soft to palpation, not firm, nontender and No hepatosplenomegaly present Auscultation: normal bowel sounds General: Yes no CVA tenderness Back/Spine/Pelvis Back: no CVA tenderness Skin General skin exam: elasticity normal, turgor normal and dry skin Neuro General: patient oriented x3 Psych Appearance: grossly normal Mental Status: mental status grossly normal Assessment & Plan Assessment & Plan (1) GERD (gastroesophageal reflux disease): Code(s): K21.9 - Gastro-esophageal reflux disease without esophagitis Qualifiers: Esophagitis presence: esophagitis presence not specified Qualified Code(s): K21.9 - Gastro-esophageal reflux disease without esophagitis (2) Postprandial epigastric pain: Code(s): R10.13 - Epigastric pain (3) Nausea: Code(s): R11.0 - Nausea (4) Constipation: Code(s): K59.00 - Constipation, unspecified Qualifiers: Constipation type: slow transit constipation Qualified Code(s): K59.01 - Slow transit constipation Plan Patient will start taking pantoprazole like she did before. Patient can continue taking sucralfate twice a day. Continue avoiding dietary triggers. Continue avoiding smoking marijuana. I will see patient after the procedure, sooner on as needed basis. Patient is agreeable to this plan and verbalizes understanding of instructions. She was given the opportunity to ask questions and all questions answered. Thank you for allowing me to participate in her care Medications: New pantoprazole take one tablet half an hour before breakfast 40 mg PO DAILY 30 tabs 2RF K21.9 - Gastro-esophageal reflux disease without esophagitis Discontinued esomeprazole magnesium (Nexium) Discontinued Reason: Doctor's Order 40 mg PO DAILY 30 caps 5RF K21.9 - Gastro-esophageal reflux disease without esophagitis Coding Level of Care Code Est Pt Level 3 (25292) Diagnoses Gastroesophageal reflux disease, unspecified whether esophagitis present K21.9 Esophagitis presence: esophagitis presence not specified Postprandial epigastric pain R10.13 Nausea R11.0 Slow transit constipation K59.01 Constipation type: slow transit constipation Time Spent (min) 30 Comment 20 minutes spent with patient and additional 10 minutes spent reviewing her records
[2023-03-22 12:05] VITALS: BP 109/59; PULSE 82; BMI 29.3
== END 2023-03-22 12:37 | disposition home or self-care (01) ==
PROVIDERS: PCP Pediatrics Adolescent Medicine; Visit Provider Nurse Practitioner Family
DX: K21.9 Gastro-esophageal reflux disease without esophagitis (principal); R10.13 Epigastric pain; R11.0 Nausea; K59.01 Slow transit constipation
CPT/HCPCS: 99213

== ENCOUNTER → 2023-03-22 11:56 | Outpatient (BNVA) | payer OTHER, SELFPAY | PROVIDERS: PCP Pediatrics Adolescent Medicine; Visit Provider Nurse Practitioner Family | DX: K21.9 Gastro-esophageal reflux disease without esophagitis (principal); R10.13 Epigastric pain; R11.0 Nausea; K59.01 Slow transit constipation | CPT/HCPCS: 99212 ==

== ENCOUNTER 2023-03-28 11:50 | Day surgery (SDC) | payer OTHER, SELFPAY ==
[2023-03-24 12:15] VITALS: BMI 27.9
--- NOTE | 2023-03-25 10:23 | P.CONAN_ITS ---
Documented by User: Altagracia Henry NP 03/25/23 10:23 HPI - Anesthesia Eval Consult details Narrative: 23yo F for Upper Endoscopy [facility] Family History Family History Maternal Aunt Cancer Maternal Uncle High cholesterol Maternal Grandfather High cholesterol Family history of problems with anesthesia: No Surgical History Surgical History History of esophagogastroduodenoscopy (EGD) History of nasal surgery Hx of tonsillectomy History of Problems with Anesthesia: No Social History Social History Household Members: Family Unable to assess alcohol history related to: Unable to respond Patient Tobacco Use Status: Never used Tobacco Use of substances other than those prescribed or required for medical reasons: Yes Substance Use Frequency: Occasionally Are you DNR?: No Advance Directives: No Advance Directives Information Provided: Yes Meds Allergies Allergy/AdvReac Type Severity Reaction Status Date / Time esomeprazole [From Nexium] Allergy Intermediate Migraine Verified 03/28/23 12:21 sesame seed Allergy Intermediate Itching Verified 03/28/23 12:21 Home Medications Medication Instructions Recorded Confirmed Last Taken Type albuterol sulfate 90 mcg/actuation 2 puff inhalation Q4H PRN 03/01/23 Unknown History aerosol inhaler (Ventolin HFA) levonorgestrel 0.15 mg-ethinyl 1 tab PO DAILY 03/01/23 Unknown History estradiol 0.03 mg tablet (Altavera (28)) Exam Height,Weight and Vital Signs: Height 5 ft 3.5 in Weight 72.575 kg Assessment and Plan Assessment Anesthesia Assessment: Chart Reviewed Final Anesthetic Review Family History of Problems with Anesthesia: No History of Problems with Anesthesia: No Documented by User: Mable Bell MD 03/28/23 12:45 [facility] Family History Family History Maternal Aunt Cancer Maternal Uncle High cholesterol Maternal Grandfather High cholesterol Surgical History Surgical History History of esophagogastroduodenoscopy (EGD) History of nasal surgery Hx of tonsillectomy Social History Social History Household Members: Family Unable to assess alcohol history related to: Unable to respond Patient Tobacco Use Status: Never used Tobacco Use of substances other than those prescribed or required for medical reasons: Yes Substance Use Frequency: Occasionally Are you DNR?: No Advance Directives: No Advance Directives Information Provided: Yes Meds Allergies Allergy/AdvReac Type Severity Reaction Status Date / Time esomeprazole [From Nexium] Allergy Intermediate Migraine Verified 03/28/23 12:21 sesame seed Allergy Intermediate Itching Verified 03/28/23 12:21 Home Medications Medication Instructions Recorded Confirmed Last Taken Type albuterol sulfate 90 mcg/actuation 2 puff inhalation Q4H PRN 03/01/23 Unknown History aerosol inhaler (Ventolin HFA) levonorgestrel 0.15 mg-ethinyl 1 tab PO DAILY 03/01/23 Unknown History estradiol 0.03 mg tablet (Altavera (28)) Exam Airway Mallampati Class: II TM Dist: >3cm Neck ROM: Full Heart: rrr Lungs: cta Assessment and Plan Assessment Anesthesia Assessment: Anesthesia Plan Discussed Final Anesthetic Review NPO: Yes ASA Class: II Final Preanesthetic Review: No Changes in Pt Med Stat, Meds/Allgs Chart Reviewed and Consent Obtained/Reviewed Patient Risk: Intermediate Procedure Risk: Intermediate Anesthetic Plan Anesthetic Plan: MAC: Disposition: Standard PACU
[2023-03-28 12:02] VITALS: BMI 30.9
[2023-03-28 12:21] VITALS: BP 118/69; PULSE 83; RESP 16; TEMP 36; O2SAT 98
[2023-03-28] MEDS: Lactated Ringers 1,000 ML 100 ML IVCONT (12:23)
[2023-03-28 13:12] LABS: UPreg QC Valid YES; Urine Pregnancy NEGATIVE (NEGATIVE)
--- NOTE | 2023-03-28 13:13 | MHC.SHP ---
Pre-Procedural Eval Section A - 24 Hr Update-Section A only Date of Service: 03/28/23 The patient is an INPATIENT: No Changes since office visit: Yes Patient answered all questions; No Cold of Flu in the past 2 weeks, No New Medical Problems and No Changes in Medication The patient has been examined within 24 hours of the surgical procedure. The History & Physical has been completed within 30 days and I have reviewed it.: Yes Section B - Complete if H&P > 30 days Chief Complaint: gerd, Allergies: Allergies Allergy/AdvReac Type Severity Reaction Status Date / Time esomeprazole [From Nexium] Allergy Intermediate Migraine Verified 03/28/23 12:21 sesame seed Allergy Intermediate Itching Verified 03/28/23 12:21 Review of Systems Sugical H&P ROS: Negative: Constitution, Cardiovascular and Respiratory and Yes, Specify: Gastrointestinal (GERD) Exam Surgical H&P Exam: Normal: Heart, Normal: Lungs, Normal: Extremities and Normal: Abdomen Plan Diagnosis/Plan: Unchanged I have reviewed the history and physical and performed a pertinent physical examination on my patient. No changes have occurred unless specified. Time Spent With Patient Time: Total time managing care of this patient today ____ minutes.
--- NOTE | 2023-03-28 13:15 | P.OP_ITS ---
Operative Note Operative Note Date of Service: 03/28/23 Narrative: FLEXIBLE TRANSORAL UPPER GASTROINTESTINAL ENDOSCOPY WITH BIOPSIES Pre-op diagnosis: GERD, nausea Post-op diagnosis: GERD, gastritis Endoscopist:? Shelia Boudreaux MD Anesthesia:?MAC Consent: Indications for the procedure and potential complications of bleeding, perforation, reaction to medications and missed diagnosis were discussed with the patient and informed consent was obtained. Instrument: Olympus GIF H 190 mid size upper endoscope Monitoring: Vital signs and clinical assessment, continuous EKG monitoring, Pulse oximetry, Carbon Dioxide monitoring and blood pressure monitoring were done throughout the procedure. Procedure: The patient was placed in the left lateral decubitis position and pre-procedure medications were administered and a bite block was placed. The endoscope was inserted into the mouth and advanced under direct vision to the third part of duodenum. A careful inspection was made as the upper endoscope was withdrawn including a retroflexed examination of the proximal stomach; Findings and interventions are described below. Findings: Larynx: Normal Esophagus: GE junction at 36 cms. No esophagitis or Funez's. Stomach: Mild gastric erythema - antral erosions noted on last EGD resolved. Biopsies were obtained. Grade 2 flap valve on retroflexed examination of the cardia. Duodenum: Normal bulb and descending duodenum. No celiac sprue noted on biopsies obtained from 3rd part of the duodenum during past EGD Intervention: Biopsies as noted above Impression and Post Procedure Diagnosis: Endoscopy Findings: STOMACH: Mild gastric erythema - antral erosions noted on last EGD resolved. Biopsies were obtained. Plan: Await pathology results Patient has an appointment on 04/12/23 in the GI Clinic with Julia Carreno FNP-BC. Above findings were reviewed with the patient and GERD handout was given in the discharge area. Pt reports partial improvement in symptoms with pantoprazole and sucralfate. Pt was advised to schedule a barium swallow to evaluate severity of GERD. BIOPSIES SHOWED: Gastric antrum, biopsy: Gastric antral mucosa with congestion and minimal chron ic inactive gastritis; negative for H. pylori, intestinal metaplasia and dysplasia
[2023-03-28 13:35] VITALS: BP 112/71; PULSE 101; RESP 16; TEMP 36.9; O2SAT 93
[2023-03-28 13:50] VITALS: BP 114/69; PULSE 83; RESP 16; O2SAT 97
[2023-03-28 13:57] VITALS: PULSE 97; RESP 16; O2SAT 97
[2023-03-28] MEDS: Albuterol Sulfate (0.083%) 2.5 MG/3 ML VIAL.NEB INHALE (13:57)
[2023-03-28 14:05] VITALS: BP 126/64; PULSE 98; RESP 18; TEMP 36.9; O2SAT 100
== END 2023-03-28 14:40 | disposition home or self-care (01) ==
PROVIDERS: Nurse Practitioner; PCP Pediatrics Adolescent Medicine; Visit Provider Internal Medicine Gastroenterology
PROC: 0DJ08ZZ Inspection of Upper Intestinal Tract, Via Natural or Artificial Opening Endoscopic (ICD-10-PCS; CPT 43235; principal; 2023-03-28 13:20)
DX: K21.9 Gastro-esophageal reflux disease without esophagitis (principal); K29.60 Other gastritis without bleeding; K59.01 Slow transit constipation; Z79.899 Other long term (current) drug therapy; Z88.8 Allergy status to other drugs, medicaments and biological substances
CPT/HCPCS: 43239; 81025; 88305; 88313; 88342; 94640; J2704

== ENCOUNTER → 2023-03-28 11:50 | Outpatient (BNV) | payer OTHER, SELFPAY | PROVIDERS: PCP Pediatrics Adolescent Medicine; Visit Provider Internal Medicine Gastroenterology | DX: K21.9 Gastro-esophageal reflux disease without esophagitis (principal); K29.70 Gastritis, unspecified, without bleeding | CPT/HCPCS: 43239 ==

== ENCOUNTER 2023-04-12 11:55 | Outpatient (AMB) | payer OTHER, SELFPAY ==
[2023-04-12 11:57] VITALS: BP 133/66; PULSE 87; BMI 30.6
--- NOTE | 2023-04-12 11:57 | MHC.OFFVIS ---
Intake Vital Signs 04/12/23 11:57 Height 5 ft 3 in Weight 173 lb BMI 30.6 BP 133/66 Blood Pressure Location Lt brachial Position Sitting Pulse 87 Pulse Source Monitor Intake Visit Reasons: S/P EGD; Dr. Boudreaux Intake Note: Patient states shes feeling better occasional stomach pains and feeling nauseas. 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 Boudreaux HPI Details LAST VISIT: GERD (gastroesophageal reflux disease) Postprandial epigastric pain Nausea Constipation Plan Patient will start taking pantoprazole like she did before. Patient can continue taking sucralfate twice a day. Continue avoiding dietary triggers. Continue avoiding smoking marijuana. I will see patient after the procedure, sooner on as needed basis. Patient is agreeable to this plan and verbalizes understanding of instructions. She was given the opportunity to ask questions and all questions answered. ? Thank you for allowing me to participate in her care Medications New pantoprazole take one tablet half an hour before breakfast 40 mg PO DAILY 30 tabs 2RF K21.9 Discontinued esomeprazole magnesium (Nexium) Discontinued Reason: Doctor's Order 40 mg PO DAILY 30 caps 5RF K21.9 UPPER ENDOSCOPY: Findings: Larynx: Normal Esophagus: GE junction at 36 cms. No esophagitis or Funez's. Stomach: Mild gastric erythema - antral erosions noted on last EGD resolved. Biopsies were obtained. Grade 2 flap valve on retroflexed examination of the cardia. Duodenum: Normal bulb and descending duodenum. No celiac sprue noted on biopsies obtained from 3rd part of the duodenum during past EGD Intervention: Biopsies as noted above Impression and Post Procedure Diagnosis: Endoscopy Findings: STOMACH: Mild gastric erythema - antral erosions noted on last EGD resolved. Biopsies were obtained. Plan: Await pathology results Patient has an appointment on 04/12/23 in the GI Clinic with Julia Carreno FNP-BC. Above findings were reviewed with the patient and GERD handout was given in the discharge area. Pt reports partial improvement in symptoms with pantoprazole and sucralfate. Pt was advised to schedule a barium swallow to evaluate severity of GERD. BIOPSIES SHOWED: Gastric antrum, biopsy: Gastric antral mucosa with congestion and minimal chronic inactive gastritis; negative for H. pylori, intestinal metaplasia and dysplasia TODAY'S VISIT Patient is here today for follow-up and to discuss upper endoscopy results. Patient is accompanied by her mom. Patient reports that she has been feeling better since last seen and since the procedure. Patient denies any ill effects from the anesthesia or procedure itself. Patient reports that she has been feeling well. Takes pantoprazole in the morning and sucralfate at bedtime. For the most part patient states that her symptoms are suppressed. Occasional acid reflux and nausea specially in the morning. 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 Patient has not smoked any marijuana since we last discuss about her avoiding it. Patient states that she has been feeling much better in general. Patient denies dysphagia or odynophagia. Patient reports to have good appetite. Denies any additional GI concerning symptoms today. [facility] Surgical History History of esophagogastroduodenoscopy (EGD) History of nasal surgery Hx of tonsillectomy Family History Maternal Aunt Cancer Maternal Uncle High cholesterol Maternal Grandfather High cholesterol Social History Household Members: Family Unable to assess alcohol history related to: Unable to respond Patient Tobacco Use Status: Never used Tobacco Review of Systems Const Denies weight gain and Denies weight loss ENT Reports no additional complaints, Denies dysphagia and Denies odynophagia Card Reports no additional complaints Resp Reports no additional complaints GI Denies abdominal pain, Denies belching, Denies melena, Denies bloating, Denies change in bowel habits, Denies dysphagia, Denies excessive flatus, Denies dyspepsia, Reports heartburn (Occasional), Denies diarrhea, Denies loose stools, Denies nausea, Denies odynophagia and Denies vomiting Reports no additional complaints Musc Reports no additional complaints Neuro Reports no additional complaints Psych Reports no additional complaints Endo Reports no additional complaints Physical Exam Vital Signs: Last Vital Signs Pulse 87 04/12/23 11:57 BP 133/66 04/12/23 11:57 BMI result Body Mass Index 30.6 Const General: healthy appearing, no acute distress and well developed Nutritional Appearance: well nourished Orientation/consciousness: patient oriented x3 Resp Effort & Inspection: normal respiratory effort, able to speak in complete sentences, no tracheal deviation and symmetric chest movement Auscultation: clear to auscultation bilaterally Cardio Rate: regular rate GI Inspection: Yes normal to inspection and No distended Palpation (GI): Soft to palpation, not firm, nontender and No hepatosplenomegaly present Auscultation: normal bowel sounds General: Yes no CVA tenderness Back/Spine/Pelvis Back: no CVA tenderness Skin General skin exam: elasticity normal, turgor normal and dry skin Neuro General: patient oriented x3 Psych Appearance: grossly normal Mental Status: mental status grossly normal Assessment & Plan Assessment & Plan (1) GERD (gastroesophageal reflux disease): Code(s): K21.9 - Gastro-esophageal reflux disease without esophagitis Qualifiers: Esophagitis presence: without esophagitis Qualified Code(s): K21.9 - Gastro-esophageal reflux disease without esophagitis (2) Postprandial epigastric pain: Code(s): R10.13 - Epigastric pain (3) Nausea: Code(s): R11.0 - Nausea (4) Constipation: Code(s): K59.00 - Constipation, unspecified Qualifiers: Constipation type: slow transit constipation Qualified Code(s): K59.01 - Slow transit constipation Plan Continue taking pantoprazole in the morning and sucralfate at bedtime. Patient can continue taking Dulcolax tablets daily. Increase fluid intake and activity to promote better bowel motility. Discussed with patient avoiding dietary triggers and late night snacking. Continue avoiding marijuana use. I will see patient in 3 months, sooner on as needed basis. Patient is agreeable to this plan and verbalizes understanding of instructions. She was given the opportunity to ask questions and all questions answered. Thank you for allowing me to participate in her care Coding Level of Care Code Est Pt Level 3 (13388) Diagnoses Gastroesophageal reflux disease without esophagitis K21.9 Esophagitis presence: without esophagitis Postprandial epigastric pain R10.13 Nausea R11.0 Slow transit constipation K59.01 Constipation type: slow transit constipation Time Spent (min) 30 Comment 20 minutes spent with patient and additional 10 minutes spent reviewing her records
== END 2023-04-12 13:11 | disposition home or self-care (01) ==
PROVIDERS: PCP Pediatrics Adolescent Medicine; Visit Provider Nurse Practitioner Family
DX: K21.9 Gastro-esophageal reflux disease without esophagitis (principal); R10.13 Epigastric pain; R11.0 Nausea; K59.01 Slow transit constipation
CPT/HCPCS: 99213

== ENCOUNTER → 2023-04-12 11:55 | Outpatient (BNVA) | payer OTHER, SELFPAY | PROVIDERS: PCP Pediatrics Adolescent Medicine; Visit Provider Nurse Practitioner Family | DX: K21.9 Gastro-esophageal reflux disease without esophagitis (principal); R10.13 Epigastric pain; R11.0 Nausea | CPT/HCPCS: 99212 ==

== ENCOUNTER 2023-07-01 10:34 | Outpatient (AMB) | payer OTHER, SELFPAY ==
[2023-07-01 10:38] VITALS: BP 131/63; PULSE 73; BMI 32.2
--- NOTE | 2023-07-01 10:38 | MHC.OFFVIS ---
Vital Signs 07/01/23 10:38 Height 5 ft 3 in Weight 182 lb BMI 32.2 BP 131/63 Blood Pressure Location Lt brachial Position Sitting Pulse 73 Intake Visit Reasons: Abdominal pain/ Gerd Intake Note: Patient being seen this morning as an urgent appointment. C/o vomiting since Tuesday. Taking Sulcralfate, pantoprazole. Patient reports improvement with zofran. 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 Patient can continue taking Dulcolax tablets daily. Increase fluid intake and activity to promote better bowel motility. Discussed with patient avoiding dietary triggers and late night snacking. Continue avoiding marijuana use. I will see patient in 3 months, sooner on as needed basis. Patient is agreeable to this plan and verbalizes understanding of instructions. She was given the opportunity to ask questions and all questions answered. ? TODAY'S VISIT Patient is here today for requested visit. Patient is accompanied by her mom. Patient reports that since last weekend patient has been vomiting and complaining of epigastric discomfort. Patient is taking pantoprazole as well as sucralfate at bedtime. Patient reports that she is not having any acid reflux, however she is belching a lot and experiencing epigastric pain and nausea. Zofran was called in yesterday and patient has been taking it since. Patient does report that it helps. Patient does admit to vape marijuana, however she reports that she gets it from dispensary. Barium swallow was ordered back in March by Dr. Boudreaux and patient never received a call for appointment. Will try to help scheduling that today. [facility] Surgical History History of esophagogastroduodenoscopy (EGD) History of nasal surgery Hx of tonsillectomy Family History Maternal Aunt Cancer Maternal Uncle High cholesterol Maternal Grandfather High cholesterol Social History Household Members: Family Unable to assess alcohol history related to: Unable to respond Patient Tobacco Use Status: Never used Tobacco Review of Systems Const Denies weight gain and Denies weight loss ENT Reports no additional complaints, Denies dysphagia and Denies odynophagia Card Reports no additional complaints Resp Reports no additional complaints GI Reports abdominal pain (Epigastric), Denies belching, Denies melena, Denies bloating, Denies change in bowel habits, Denies dysphagia, Denies excessive flatus, Reports dyspepsia, Reports heartburn, Denies diarrhea, Denies loose stools, Reports nausea, Denies odynophagia and Reports vomiting Reports no additional complaints Musc Reports no additional complaints Neuro Reports no additional complaints Psych Reports no additional complaints Endo Reports no additional complaints Physical Exam Vital Signs: Last Vital Signs Pulse 73 07/01/23 10:38 BP 131/63 07/01/23 10:38 BMI result Body Mass Index 32.2 Const General: healthy appearing, no acute distress and well developed Nutritional Appearance: well nourished Orientation/consciousness: patient oriented x3 Resp Effort & Inspection: normal respiratory effort, able to speak in complete sentences, no tracheal deviation and symmetric chest movement Auscultation: clear to auscultation bilaterally Cardio Rate: regular rate GI Inspection: Yes normal to inspection and No distended Palpation (GI): Soft to palpation, not firm, nontender and No hepatosplenomegaly present Auscultation: normal bowel sounds General: Yes no CVA tenderness Back/Spine/Pelvis Back: no CVA tenderness Skin General skin exam: elasticity normal, turgor normal and dry skin Neuro General: patient oriented x3 Psych Appearance: grossly normal Mental Status: mental status grossly normal Assessment & Plan Assessment & Plan (1) GERD (gastroesophageal reflux disease): Code(s): K21.9 - Gastro-esophageal reflux disease without esophagitis Qualifiers: Esophagitis presence: esophagitis presence not specified Qualified Code(s): K21.9 - Gastro-esophageal reflux disease without esophagitis (2) Postprandial epigastric pain: Code(s): R10.13 - Epigastric pain (3) Nausea: Code(s): R11.0 - Nausea (4) Constipation: Code(s): K59.00 - Constipation, unspecified Qualifiers: Constipation type: slow transit constipation Qualified Code(s): K59.01 - Slow transit constipation Plan Patient reports that she is moving her bowels better now. Continue pantoprazole every morning half an hour before breakfast and sucralfate at bedtime. Patient can take sucralfate at noon time after lunch to help with dyspepsia. Avoid vaping. Capsaicin order for patient. Patient to apply capsaicin in epigastric area. Patient will return in the office in 3 weeks for evaluation. Both patient and her mom are agreeable to plan of care and verbalizes understanding of instructions. They were given the to ask questions and all questions answered. Thank you for allowing me to participate in her care Orders: Orders FL barium swallow 03/28/23 K21.9 - Gastro-esophageal reflux disease without esophagitis Medications: New capsaicin 0.1% do not wash area for at least 30 min after application 1 appl topical BID 42.5 grams 0RF M79.2 - Neuralgia and neuritis, unspecified, R11.10 - Vomiting, unspecified Refilled pantoprazole take one tablet half an hour before breakfast 40 mg PO DAILY 90 tabs 2RF K21.9 - Gastro-esophageal reflux disease without esophagitis Coding Level of Care Code Est Pt Level 4 (92940) Diagnoses Gastroesophageal reflux disease, unspecified whether esophagitis present K21.9 Esophagitis presence: esophagitis presence not specified Postprandial epigastric pain R10.13 Nausea R11.0 Slow transit constipation K59.01 Constipation type: slow transit constipation Time Spent (min) 35 Comment 25 minutes spent with patient and additional 10 minutes spent reviewing her records
== END 2023-07-01 11:17 | disposition home or self-care (01) ==
PROVIDERS: PCP Pediatrics Adolescent Medicine; Visit Provider Nurse Practitioner Family
DX: K21.9 Gastro-esophageal reflux disease without esophagitis (principal); R10.13 Epigastric pain; R11.0 Nausea; K59.01 Slow transit constipation
CPT/HCPCS: 99214

== ENCOUNTER → 2023-07-01 10:34 | Outpatient (BNVA) | payer OTHER, SELFPAY | PROVIDERS: PCP Pediatrics Adolescent Medicine; Visit Provider Nurse Practitioner Family | DX: K21.9 Gastro-esophageal reflux disease without esophagitis (principal); R10.13 Epigastric pain; R11.0 Nausea; K59.01 Slow transit constipation; Z79.899 Other long term (current) drug therapy | CPT/HCPCS: 99212 ==

== ENCOUNTER 2023-07-26 10:29 | Outpatient (REF) | payer OTHER, SELFPAY ==
--- NOTE | ~2023-07-26 | FL_ITS ---
EXAMINATION: XR FLUOROSCOPY UPPER GI WITH AIR CLINICAL INFORMATION: Epigastric pain COMPARISON: None TECHNIQUE: Fluoroscopic air contrast upper GI examination was performed utilizing standard techniques with thin and thick barium and effervescent granules. Numerous spot images were obtained. FINDINGS: Dual and single contrast images of the esophagus demonstrate normal caliber, contour, and mucosal pattern. No evidence of stricture, mass, or ulcerations identified. Esophageal peristalsis was normal. A very small type I hiatal hernia is present. No significant gastroesophageal reflux was seen during the course of the examination and on reflux views. Dual contrast and single contrast images of the stomach demonstrated a normal contour. The gastric mucosal folds of a mildly thickened appearance to it, however, this may be due to underdistention of the stomach from poor tolerance of the effervescent granules. There are a few small foci of contrast pooling in the fundus of the stomach that may represent small superficial aphthous ulcers. Contrast freely passed into the gastric antrum and duodenal bulb without delay. Single and air-contrast images of the duodenal bulb demonstrate no abnormality. The duodenal sweep has a normal appearance, course, and mucosal fold appearance. The imaged proximal jejunum has a normal fold pattern and caliber. FLUOROSCOPY TIME: 3 minutes 25 seconds Number of Spot Images: 11 Number of Cine: 12 DOSE AREA PRODUCT: 1990 uGy-m2 (microgray-meter squared) FL/FL barium swallow with air IMPRESSION: 1. Very small type I hiatal hernia. 2. Mildly thickened gastric rugal folds that may represents gastritis, however, this may be due to underdistention of the stomach from poor tolerance of the effervescent granules. 3. There are a few small foci of contrast pooling in the fundus the stomach that may represent small superficial aphthous ulcers. Consider correlation with EGD. This procedure was performed by Alfie Mejia PA-C, and supervised by Dr. Interiano
== END 2023-07-26 10:30 | disposition home or self-care (01) ==
LOC: HO.XRAY 10:29
PROVIDERS: Visit Provider Nurse Practitioner Family
DX: K21.9 Gastro-esophageal reflux disease without esophagitis (principal)
CPT/HCPCS: 74221

== ENCOUNTER → 2023-07-26 10:30 | Outpatient (BNV) | payer OTHER, SELFPAY | PROVIDERS: Visit Provider Physician Assistant Surgical | DX: R10.13 Epigastric pain (principal) | CPT/HCPCS: 74221 ==

== ENCOUNTER 2023-08-03 15:10 | Outpatient (AMB) | payer OTHER, SELFPAY ==
--- NOTE | 2023-08-03 15:17 | MHC.OFFVIS ---
Vital Signs 08/03/23 15:24 Height 5 ft 3 in Weight 188 lb 4.396 oz BMI 33.3 BP 106/68 Blood Pressure Location Lt brachial Position Sitting Pulse 64 Pulse Source Pulse Oximeter Pulse Oximetry (%) 99 Oxygen Delivery Method Room Air Intake Visit Reasons: 1 month follow up GERD Intake Note: Rashad presents in office today for a scheduled 1 mos FUV. CC; Pt received new orders for meds (pantoprazole and capsaicin topical) and labs at last visit. Pt is also here to discuss results of BA FL. Pt reports that the pantoprazole has been working as intended without any complications. Pt states however, that she never did receive the capsaicin. Pt states that her insurance will not cover this Rx. 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 Continue pantoprazole every morning half an hour before breakfast and sucralfate at bedtime. Patient can take sucralfate at noon time after lunch to help with dyspepsia. Avoid vaping. Capsaicin order for patient. Patient to apply capsaicin in epigastric area. Patient will return in the office in 3 weeks for evaluation. Both patient and her mom are agreeable to plan of care and verbalizes understanding of instructions. They were given the to ask questions and all questions answered. ? Thank you for allowing me to participate in her care Orders Orders FL barium swallow 03/28/23 K21.9 Medications New capsaicin 0.1% do not wash area for at least 30 min after application 1 appl topical BID 42.5 grams 0RF M79.2, R11.10 Refilled pantoprazole take one tablet half an hour before breakfast 40 mg PO DAILY 90 tabs 2RF K21.9 TODAY'S VISIT Patient is here today for follow-up and to discuss barium swallow results. Patient is accompanied by her mom. Patient reports that she has been feeling better. She is able to eat now. States that she has been taking pantoprazole every morning and feels like it is working. Patient has possible mild gastritis seen on barium swallow. Patient reports that she has not smoked any marijuana in the last few weeks since she saw me. Patient was unable to get capsaicin as it was not covered by the insurance. Patient admits that she smokes marijuana to help her it and anxiety as well as helps her to go to sleep. Patient states that she has not tried any melatonin or any other way to help her go to sleep yet. Patient gained 30 lb since July of last year. Patient reports that she is moving her bowels well. [facility] Surgical History History of esophagogastroduodenoscopy (EGD) History of nasal surgery Hx of tonsillectomy Family History Maternal Aunt Cancer Maternal Uncle High cholesterol Maternal Grandfather High cholesterol Social History Household Members: Family Unable to assess alcohol history related to: Unable to respond Patient Tobacco Use Status: Never used Tobacco Review of Systems Const Denies weight gain and Denies weight loss ENT Reports no additional complaints, Denies dysphagia and Denies odynophagia Card Reports no additional complaints Resp Reports no additional complaints GI Denies abdominal pain, Denies belching, Denies melena, Denies bloating, Denies change in bowel habits, Denies dysphagia, Denies excessive flatus, Denies dyspepsia, Denies heartburn, Denies diarrhea, Denies loose stools, Denies nausea, Denies odynophagia and Denies vomiting Musc Reports no additional complaints Neuro Reports no additional complaints Psych Reports no additional complaints Endo Reports no additional complaints Physical Exam Vital Signs: Last Vital Signs Pulse 64 08/03/23 15:24 BP 106/68 08/03/23 15:24 Pulse Ox 99 08/03/23 15:24 Oxygen Delivery Method Room Air 08/03/23 15:24 BMI result Body Mass Index 33.3 Const General: healthy appearing, no acute distress and well developed Nutritional Appearance: well nourished Orientation/consciousness: patient oriented x3 Resp Effort & Inspection: normal respiratory effort, able to speak in complete sentences, no tracheal deviation and symmetric chest movement Auscultation: clear to auscultation bilaterally Cardio Rate: regular rate GI Inspection: Yes normal to inspection and No distended Palpation (GI): Soft to palpation, not firm, nontender and No hepatosplenomegaly present Auscultation: normal bowel sounds General: Yes no CVA tenderness Back/Spine/Pelvis Back: no CVA tenderness Skin General skin exam: elasticity normal, turgor normal and dry skin Neuro General: patient oriented x3 Psych Appearance: grossly normal Mental Status: mental status grossly normal Results Reviewed Results Reviewed: BARIUM SWALLOW 07/26/2023 IMPRESSION: 1. Very small type I hiatal hernia. 2. Mildly thickened gastric rugal folds that may represents gastritis, however, this may be due to underdistention of the stomach from poor tolerance of the effervescent granules. 3. There are a few small foci of contrast pooling in the fundus the stomach that may represent small superficial aphthous ulcers. Consider correlation with EGD. Assessment & Plan Assessment & Plan (1) GERD (gastroesophageal reflux disease): Code(s): K21.9 - Gastro-esophageal reflux disease without esophagitis Qualifiers: Esophagitis presence: without esophagitis Qualified Code(s): K21.9 - Gastro-esophageal reflux disease without esophagitis (2) Postprandial epigastric pain: Code(s): R10.13 - Epigastric pain (3) Nausea: Code(s): R11.0 - Nausea (4) Constipation: Code(s): K59.00 - Constipation, unspecified Qualifiers: Constipation type: slow transit constipation Qualified Code(s): K59.01 - Slow transit constipation Plan Continue PPI therapy. Sucralfate in the afternoon and at bedtime. Continue avoiding marijuana. May try melatonin or chamomile tea. Patient was encouraged to increase fluid intake and activity to promote better bowel motility. Barium swallow results discussed with patient. She will return in 4 weeks, sooner on as needed basis. Both patient and her mother are agreeable to plan of care and verbalizes understanding of instructions. They were given the opportunity to ask questions and all questions answered. Thank you for allowing me to participate in her care Coding Level of Care Code Est Pt Level 4 (26399) Diagnoses Gastroesophageal reflux disease without esophagitis K21.9 Esophagitis presence: without esophagitis Postprandial epigastric pain R10.13 Nausea R11.0 Slow transit constipation K59.01 Constipation type: slow transit constipation Time Spent (min) 35 Comment 20 minutes spent with patient and additional 15 minutes spent
[2023-08-03 15:24] VITALS: BP 106/68; PULSE 64; O2SAT 99; BMI 33.3
== END 2023-08-03 15:53 | disposition home or self-care (01) ==
PROVIDERS: PCP Pediatrics Adolescent Medicine; Visit Provider Nurse Practitioner Family
DX: K21.9 Gastro-esophageal reflux disease without esophagitis (principal); R10.13 Epigastric pain; R11.0 Nausea; K59.01 Slow transit constipation
CPT/HCPCS: 99214

== ENCOUNTER → 2023-08-03 15:10 | Outpatient (BNVA) | payer OTHER, SELFPAY | PROVIDERS: PCP Pediatrics Adolescent Medicine; Visit Provider Nurse Practitioner Family | DX: K21.9 Gastro-esophageal reflux disease without esophagitis (principal); K59.01 Slow transit constipation; R10.13 Epigastric pain; R11.0 Nausea | CPT/HCPCS: 99212 ==

== ENCOUNTER 2023-09-09 13:41 | Outpatient (AMB) | payer OTHER, SELFPAY ==
--- NOTE | 2023-09-09 13:56 | MHC.OFFVIS ---
Vital Signs 09/09/23 14:02 Height 5 ft 3 in Weight 192 lb 10.944 oz BMI 34.1 BP 102/62 Blood Pressure Location Lt brachial Position Sitting Pulse 74 Pulse Source Pulse Oximeter Pulse Oximetry (%) 99 Oxygen Delivery Method Room Air Intake Visit Reasons: 4 week follow up Intake Note: Rashad presents in office today for a scheduled 4 week FUV. CC: Pt reports having intermittent chronic sx that they are still dealing with. Pt does report having some good days however; they do feel that the pantoprazole has not been working for them and is not effective in treating their sx. Safety And Health Manager Required: No Allergies esomeprazole [From Nexium] Allergy (Intermediate, Verified 09/09/23 13:57) Migraine sesame seed Allergy (Intermediate, Verified 09/09/23 13:57) Itching HPI HPI 4 week follow up: Details: LAST VISIT GERD (gastroesophageal reflux disease) Postprandial epigastric pain Nausea Constipation Plan Continue PPI therapy. Sucralfate in the afternoon and at bedtime. Continue avoiding marijuana. May try melatonin or chamomile tea. Patient was encouraged to increase fluid intake and activity to promote better bowel motility. Barium swallow results discussed with patient. She will return in 4 weeks, sooner on as needed basis. Both patient and her mother are agreeable to plan of care and verbalizes understanding of instructions. They were given the opportunity to ask questions and all questions answered. ? TODAY'S VISIT Patient is here today for follow-up. Patient is accompanied by her mom. Patient states that she has not smoked marijuana since last visit. Reports that she has been doing well, however she feels like pantoprazole is not really helping her. She continues to have occasional nausea without vomiting. Patient does report epigastric pain postprandially. Patient is taking sucralfate in the afternoon and at bedtime. Feels like sucralfate helps her a lot. Patient states that she is not always following diet. Craves fast food quite often. [facility] Surgical History History of esophagogastroduodenoscopy (EGD) History of nasal surgery Hx of tonsillectomy Family History Maternal Aunt Cancer Maternal Uncle High cholesterol Maternal Grandfather High cholesterol Social History Household Members: Family Unable to assess alcohol history related to: Unable to respond Patient Tobacco Use Status: Never used Tobacco Review of Systems Const Denies weight gain and Denies weight loss ENT Reports no additional complaints, Denies dysphagia and Denies odynophagia Card Reports no additional complaints Resp Reports no additional complaints GI Denies abdominal pain, Denies belching, Denies melena, Reports bloating, Denies change in bowel habits, Denies dysphagia, Denies excessive flatus, Denies dyspepsia, Reports heartburn, Denies diarrhea, Denies loose stools, Reports nausea, Denies odynophagia and Denies vomiting Reports no additional complaints Musc Reports no additional complaints Neuro Reports no additional complaints Psych Reports no additional complaints Endo Reports no additional complaints Physical Exam Vital Signs: Last Vital Signs Pulse 74 09/09/23 14:02 BP 102/62 09/09/23 14:02 Pulse Ox 99 09/09/23 14:02 Oxygen Delivery Method Room Air 09/09/23 14:02 BMI result Body Mass Index 34.1 Const General: healthy appearing and no acute distress Nutritional Appearance: obese Orientation/consciousness: patient oriented x3 Resp Effort & Inspection: normal respiratory effort, able to speak in complete sentences, no tracheal deviation and symmetric chest movement Auscultation: clear to auscultation bilaterally Cardio Rate: regular rate GI Inspection: Yes normal to inspection and No distended Palpation (GI): Soft to palpation, not firm, nontender and No hepatosplenomegaly present Auscultation: normal bowel sounds General: Yes no CVA tenderness Back/Spine/Pelvis Back: no CVA tenderness Skin General skin exam: elasticity normal, turgor normal and dry skin Neuro General: patient oriented x3 Psych Appearance: grossly normal Mental Status: mental status grossly normal Assessment & Plan Assessment & Plan (1) GERD (gastroesophageal reflux disease): Code(s): K21.9 - Gastro-esophageal reflux disease without esophagitis Qualifiers: Esophagitis presence: esophagitis presence not specified Qualified Code(s): K21.9 - Gastro-esophageal reflux disease without esophagitis (2) Postprandial epigastric pain: Code(s): R10.13 - Epigastric pain (3) Nausea: Code(s): R11.0 - Nausea (4) Constipation: Code(s): K59.00 - Constipation, unspecified Qualifiers: Constipation type: slow transit constipation Qualified Code(s): K59.01 - Slow transit constipation Plan Will change treatment to rabeprazole. Continue avoid smoking marijuana. Avoid dietary triggers and late night snacking. Staying upright for minimum 3 hours after meals discussed with patient. Continue sucralfate. Follow-up in the office in 3 months, sooner on as needed basis. She is agreeable to this plan and verbalizes understanding of instructions. She was given the opportunity to ask questions and all questions answered. Thank you for allowing me to participate in her care Medications: New rabeprazole 20 mg PO DAILY 30 tabs 3RF K21.9 - Gastro-esophageal reflux disease without esophagitis, R10.13 - Epigastric pain Discontinued pantoprazole take one tablet half an hour before breakfast Discontinued Reason: Doctor's Order 40 mg PO DAILY 90 tabs 2RF K21.9 - Gastro-esophageal reflux disease without esophagitis Coding Level of Care Code Est Pt Level 3 (50995) Diagnoses Gastroesophageal reflux disease, unspecified whether esophagitis present K21.9 Esophagitis presence: esophagitis presence not specified Postprandial epigastric pain R10.13 Nausea R11.0 Slow transit constipation K59.01 Constipation type: slow transit constipation Time Spent (min) 25 Comment 15 minutes spent with patient and additional 10 minutes spent reviewing her records
[2023-09-09 14:02] VITALS: BP 102/62; PULSE 74; O2SAT 99; BMI 34.1
== END 2023-09-09 14:29 | disposition home or self-care (01) ==
PROVIDERS: PCP Pediatrics Adolescent Medicine; Visit Provider Nurse Practitioner Family
DX: K21.9 Gastro-esophageal reflux disease without esophagitis (principal); R10.13 Epigastric pain; R11.0 Nausea; K59.01 Slow transit constipation
CPT/HCPCS: 99213

== ENCOUNTER → 2023-09-09 13:41 | Outpatient (BNVA) | payer OTHER, SELFPAY | PROVIDERS: PCP Pediatrics Adolescent Medicine; Visit Provider Nurse Practitioner Family | DX: K21.9 Gastro-esophageal reflux disease without esophagitis (principal); R10.13 Epigastric pain; R11.0 Nausea; K59.01 Slow transit constipation | CPT/HCPCS: 99212 ==

== ENCOUNTER 2023-12-09 14:03 | Outpatient (AMB) | payer SELFPAY ==
--- NOTE | 2023-12-09 14:08 | MHC.OFFVIS ---
Vital Signs 12/09/23 14:09 Height 5 ft 3 in Weight 187 lb 13.341 oz BMI 33.3 BP 134/84 Blood Pressure Location Lt brachial Position Sitting Pulse 82 Pulse Source Pulse Oximeter Pulse Oximetry (%) 99 Oxygen Delivery Method Room Air Intake Visit Reasons: 3 month follow up Intake Note: Relevant Flags or Indicators ? Requires Administrative Assistant Data Entry? N Rashad presents in office today for a scheduled FUV CC; Since last visit; labs ordered ? recent ED visit. Rx ordered ? no. Diagnostics/images ordered ? recent ED visit. Relevant GI Sx as reported per pt? Nausea ? Vomiting (w/o bleeding currently, pt does report one episode while admitted) ? Reflux ? Dysphagia / Painful Swallowing ? Abdominal Pain o?? Upper - epigastric ? Early satiety ? Bloating ? Abdominal distention ? Hx of any recent surgeries? None Administrative Assistant Data Entry Required: No Allergies esomeprazole [From Nexium] Allergy (Intermediate, Verified 12/09/23 14:09) Migraine sesame seed Allergy (Intermediate, Verified 12/09/23 14:09) Itching HPI HPI 3 month follow up: Details: LAST VISIT: GERD (gastroesophageal reflux disease) Postprandial epigastric pain Nausea Constipation Plan Will change treatment to rabeprazole. Continue avoid smoking marijuana. Avoid dietary triggers and late night snacking. Staying upright for minimum 3 hours after meals discussed with patient. Continue sucralfate. Follow-up in the office in 3 months, sooner on as needed basis. She is agreeable to this plan and verbalizes understanding of instructions. She was given the opportunity to ask questions and all questions answered. ? Thank you for allowing me to participate in her care Medications New rabeprazole 20 mg PO DAILY 30 tabs 3RF K21.9, R10.13 Discontinued pantoprazole take one tablet half an hour before breakfast Discontinued Reason: Doctor's Order 40 mg PO DAILY 90 tabs 2RF K21.9 TODAY'S VISIT Patient is here today for follow-up. Seen at [facility] end of October for severe epigastric pain, nausea and vomiting. Patient originally started with epigastric pain, burning and nausea. Patient was seen at [address] treated, however she continued to have cyclic vomiting. Patient does admit to smoking marijuana few days before her symptoms started. After 4 days of nausea and vomiting and not being able to tolerate any p.o. patient went to [facility] where she was admitted for observation. Patient was given IV fluids and nausea medications. Patient's white count was normal mildly elevated ALT most likely from frequent vomiting, normal bilirubin. Lipase was also normal, normal electrolytes. Patient had urinalysis that showed moderate bacteria without nitrites, however positive leukocytes and wbc's. Not seeing any results from the culture. Patient denies being treated for UTI. Patient had ultrasound of right upper quadrant that show normal size liver and echotexture without any focal lesion, no cholelithiasis or cholecystitis, small nonobstructing right upper pole renal calculus that should not cause patient's pain or vomiting. Patient reports that she developed dizziness and headache and was placed on Imitrex nasal spray. Today patient reports that she has been feeling well. Has not used Zofran since discharge. Has not smoked any marijuana. 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 Patient's mom requested to go to see GI specialist in [place] for 2nd opinion. [facility] Surgical History History of esophagogastroduodenoscopy (EGD) History of nasal surgery Hx of tonsillectomy Family History Maternal Aunt Cancer Maternal Uncle High cholesterol Maternal Grandfather High cholesterol Social History Household Members: Family Unable to assess alcohol history related to: Unable to respond Patient Tobacco Use Status: Never used Tobacco Review of Systems Const Denies weight gain and Denies weight loss ENT Reports no additional complaints, Denies dysphagia and Denies odynophagia Card Reports no additional complaints Resp Reports no additional complaints GI Denies abdominal pain, Denies belching, Denies melena, Denies bloating, Denies change in bowel habits, Denies dysphagia, Denies excessive flatus, Denies dyspepsia, Denies heartburn, Denies diarrhea, Denies loose stools, Denies nausea, Denies odynophagia and Denies vomiting Musc Reports no additional complaints Neuro Reports no additional complaints Psych Reports no additional complaints Endo Reports no additional complaints Physical Exam Vital Signs: Last Vital Signs Pulse 82 12/09/23 14:09 BP 134/84 12/09/23 14:09 Pulse Ox 99 12/09/23 14:09 Oxygen Delivery Method Room Air 12/09/23 14:09 BMI result Body Mass Index 33.3 Const General: healthy appearing and no acute distress Nutritional Appearance: obese Orientation/consciousness: patient oriented x3 Resp Effort & Inspection: normal respiratory effort, able to speak in complete sentences, no tracheal deviation and symmetric chest movement Auscultation: clear to auscultation bilaterally Cardio Rate: regular rate GI Inspection: Yes normal to inspection and No distended Palpation (GI): Soft to palpation, not firm, nontender and No hepatosplenomegaly present Auscultation: normal bowel sounds General: Yes no CVA tenderness Back/Spine/Pelvis Back: no CVA tenderness Skin General skin exam: elasticity normal, turgor normal and dry skin Neuro General: patient oriented x3 Psych Appearance: grossly normal Mental Status: mental status grossly normal Assessment & Plan Assessment & Plan (1) GERD (gastroesophageal reflux disease): Code(s): K21.9 - Gastro-esophageal reflux disease without esophagitis Qualifiers: Esophagitis presence: esophagitis presence not specified Qualified Code(s): K21.9 - Gastro-esophageal reflux disease without esophagitis (2) Postprandial epigastric pain: Code(s): R10.13 - Epigastric pain (3) Nausea: Code(s): R11.0 - Nausea (4) Constipation: Code(s): K59.00 - Constipation, unspecified Qualifiers: Constipation type: slow transit constipation Qualified Code(s): K59.01 - Slow transit constipation (5) Cyclic vomiting syndrome: Code(s): R11.15 - Cyclical vomiting syndrome unrelated to migraine (6) Cannabinoid hyperemesis syndrome: Code(s): R11.2 - Nausea with vomiting, unspecified; F12.90 - Cannabis use, unspecified, uncomplicated Plan Patient will repeat liver enzymes today if continues to have elevation we might order MRCP. Pancreas was not visualized during ultrasound, obscured by gas. Patient will continue take amitriptyline hopefully this will help her with dyspepsia. Continue taking rabeprazole in the morning. Avoid dietary triggers and late night snacking. Avoid food greasy, spicy and fried. Continue sucralfate. Patient will follow-up in 3 months. If she will develop new symptoms or if her symptoms return patient was encouraged to call the office. Patient was encouraged to strongly stay away from marijuana. Patient states that she has not smoked since discharged from the hospital. Patient is agreeable to plan of care and verbalizes understanding of instructions. She was given the opportunity to ask questions and all questions answered. Thank you for allowing me to participate in her care Orders: Orders Liver Panel Today R74.01 - Elevation of levels of liver transaminase levels Medications: New amitriptyline 10 mg PO BEDTIME 30 tabs 0RF R10.13 - Epigastric pain Refilled rabeprazole 20 mg PO DAILY 90 tabs 1RF K21.9 - Gastro-esophageal reflux disease without esophagitis, R10.13 - Epigastric pain Coding Level of Care Code Est Pt Level 4 (44766) Diagnoses Gastroesophageal reflux disease, unspecified whether esophagitis present K21.9 Esophagitis presence: esophagitis presence not specified Postprandial epigastric pain R10.13 Nausea R11.0 Slow transit constipation K59.01 Constipation type: slow transit constipation Cyclic vomiting syndrome R11.15 Cannabinoid hyperemesis syndrome R11.2; F12.90 Time Spent (min) 40 Comment 25 minutes spent with patient and additional 15 minutes spent reviewing her records
[2023-12-09 14:09] VITALS: BP 134/84; PULSE 82; O2SAT 99; BMI 33.3
== END 2023-12-09 14:32 | disposition home or self-care (01) ==
PROVIDERS: PCP Pediatrics Adolescent Medicine; Visit Provider Nurse Practitioner Family
DX: K21.9 Gastro-esophageal reflux disease without esophagitis (principal); R10.13 Epigastric pain; R11.0 Nausea; K59.01 Slow transit constipation; R11.15 Cyclical vomiting syndrome unrelated to migraine; R11.2 Nausea with vomiting, unspecified; F12.90 Cannabis use, unspecified, uncomplicated
CPT/HCPCS: 99214

== ENCOUNTER 2024-07-18 09:57 | Outpatient (AMB) | payer OTHER, SELFPAY ==
--- NOTE | 2024-07-18 09:58 | A.OFFVIS_ITS ---
Vital Signs 07/18/24 10:07 Height 5 ft 3 in Weight 190 lb BMI 33.7 BP 112/64 Blood Pressure Location Rt brachial Position Sitting Pulse 78 Pulse Source Pulse Oximeter Pulse Oximetry (%) 98 Oxygen Delivery Method Room Air Intake Visit Reasons: GERD, postprandial epigastric pain Intake Note: ESTABLISHED PATIENT for mgmt of GERD. CC; C.O. N+V x1 week w/ esophageal burning which seems to be only present in the morning. Pt states that the rabeprazole has been working well for her but that she is still only taking this PRN. Pt also reports trying the nasal spray (sumatriptan?) that the ED gave her for her GI sx which provided temporary relief for a few hours prior to resuming. Coating Line Worker Required: No Accompanied by: Mother Allergies esomeprazole [From Nexium] Allergy (Intermediate, Verified 07/18/24 09:59) Migraine sesame seed Allergy (Intermediate, Verified 07/18/24 09:59) Itching HPI HPI GERD, postprandial epigastric pain: Details: LAST VISIT: GERD (gastroesophageal reflux disease) Postprandial epigastric pain Nausea Constipation Cyclic vomiting syndrome Cannabinoid hyperemesis syndrome Plan Patient will repeat liver enzymes today if continues to have elevation we might order MRCP. Pancreas was not visualized during ultrasound, obscured by gas. Patient will continue take amitriptyline hopefully this will help her with dyspepsia. Continue taking rabeprazole in the morning. Avoid dietary triggers and late night snacking. Avoid food greasy, spicy and fried. Continue sucralfate. Patient will follow-up in 3 months. If she will develop new symptoms or if her symptoms return patient was encouraged to call the office. Patient was encouraged to strongly stay away from marijuana. Patient states that she has not smoked since discharged from the hospital. Patient is agreeable to plan of care and verbalizes understanding of instructions. She was given the opportunity to ask questions and all questions answered. ? Thank you for allowing me to participate in her care Orders Orders Liver Panel Today R74.01 Medications New amitriptyline 10 mg PO BEDTIME 30 tabs 0RF R10.13 Refilled rabeprazole 20 mg PO DAILY 90 tabs 1RF K21.9, R10.13 TODAY'S VISIT: Patient is here today for follow-up. Patient is accompanied by her mom. Patient called last week and requested this visit as her symptoms have returned. Patient reports that about a week ago she started with vomiting and epigastric pain. Patient was waking up during the night and in the morning feeling nauseous. Patient also reports that she had epigastric pain as well as abdominal pain and discomfort then. No fever or chills. No one else with similar symptoms. Patient also reported diarrhea. However patient usually is constipated and uses Dulcolax with good effect. Patient reports that 2 days ago she started taking her rabeprazole again in the morning and feeling better. Patient denies eating late at night. Drinks fluids throughout the day. Mainly water and sometimes soda. Patient reports occasional dyspepsia without dysphagia or odynophagia. Nausea is well controlled with Zofran. Patient uses usually in the morning. Patient is taking sucralfate in the morning. We will have her switch that to them night time. She is still taking amitriptyline 10 mg at bedtime. [facility] Surgical History History of esophagogastroduodenoscopy (EGD) History of nasal surgery Hx of tonsillectomy Family History Maternal Aunt Cancer Maternal Uncle High cholesterol Maternal Grandfather High cholesterol Social History Household Members: Family Unable to assess alcohol history related to: Unable to respond Patient Tobacco Use Status: Never used Tobacco Review of Systems Const Denies weight gain and Denies weight loss ENT Reports no additional complaints, Denies dysphagia and Denies odynophagia Card Reports no additional complaints Resp Reports no additional complaints GI Denies abdominal pain, Denies belching, Denies melena, Denies bloating, Denies change in bowel habits, Denies dysphagia, Denies excessive flatus, Denies dyspepsia, Denies heartburn, Denies diarrhea, Denies loose stools, Denies nausea, Denies odynophagia and Denies vomiting Musc Reports no additional complaints Neuro Reports no additional complaints Psych Reports no additional complaints Endo Reports no additional complaints Physical Exam Vital Signs: Last Vital Signs Pulse 78 07/18/24 10:07 BP 112/64 07/18/24 10:07 Pulse Ox 98 07/18/24 10:07 Oxygen Delivery Method Room Air 07/18/24 10:07 BMI result Body Mass Index 33.7 Const General: healthy appearing and no acute distress Nutritional Appearance: obese Orientation/consciousness: patient oriented x3 Resp Effort & Inspection: normal respiratory effort, able to speak in complete sentences, no tracheal deviation and symmetric chest movement Auscultation: clear to auscultation bilaterally Cardio Rate: regular rate GI Inspection: Yes normal to inspection and No distended Palpation (GI): Soft to palpation, not firm, nontender and No hepatosplenomegaly present Auscultation: normal bowel sounds General: Yes no CVA tenderness Back/Spine/Pelvis Back: no CVA tenderness Skin General skin exam: elasticity normal, turgor normal and dry skin Neuro General: patient oriented x3 Psych Appearance: grossly normal Mental Status: mental status grossly normal Assessment & Plan Assessment & Plan (1) GERD (gastroesophageal reflux disease): Code(s): K21.9 - Gastro-esophageal reflux disease without esophagitis Qualifiers: Esophagitis presence: without esophagitis Qualified Code(s): K21.9 - Gastro-esophageal reflux disease without esophagitis (2) Postprandial epigastric pain: Code(s): R10.13 - Epigastric pain (3) Nausea: Code(s): R11.0 - Nausea (4) Constipation: Code(s): K59.00 - Constipation, unspecified Qualifiers: Constipation type: slow transit constipation Qualified Code(s): K59.01 - Slow transit constipation (5) Cyclic vomiting syndrome: Code(s): R11.15 - Cyclical vomiting syndrome unrelated to migraine Plan Patient will continue taking rabeprazole every morning for the next couple months and then will switch it to different PPI. Avoid dietary triggers and late night snacking. Patient will continue taking sucralfate, however will have her take it at bedtime. Use Dulcolax as needed. Increase fluid intake and activity to promote better bowel motility. Patient will return in 2 months for re-evaluation. She will call our office if she will continue to have symptoms. She is agreeable to current plan of care and verbalizes understanding of instructions. She was given the opportunity to ask questions and all questions answered. Thank you for allowing me to participate in her care Medications: Changed From sucralfate 1 g PO BID 60 tabs 4RF To sucralfate 1 g PO BEDTIME 90 tabs 4RF Refilled ondansetron 4 mg PO Q8H PRN 20 tabs 0RF nausea and vomiting R11.0 - Nausea bisacodyl (Dulcolax (bisacodyl)) 10 mg (2 x 5 mg) PO BEDTIME 180 tabs 4RF Coding Level of Care Code Est Pt Level 4 (24821) Complex EM visit Add On G2211 Diagnoses Gastroesophageal reflux disease without esophagitis K21.9 Esophagitis presence: without esophagitis Postprandial epigastric pain R10.13 Nausea R11.0 Slow transit constipation K59.01 Constipation type: slow transit constipation Cyclic vomiting syndrome R11.15 Time Spent (min) 35 Comment 25 minutes spent with patient and additional 10 minutes spent reviewing her records
[2024-07-18 10:07] VITALS: BP 112/64; PULSE 78; O2SAT 98; BMI 33.7
--- OUTSIDE RECORDS SUMMARY | 2024-07-18 10:48 | XMS_ITS | Clinical Summary ---
Author Organization [facility] Address [address] [place] [address] Phone Care Team Providers Care Thread Milling Machine Set Up Operator Name Role Phone Xi Sanabria MD Primary Care Provider [phone] Allergies No known active allergies Encounters Date Type Department Care Team Description 05/14/2024 5:18 PM EDT - 05/14/2024 8:44 PM EDT Emergency [facility] Emergency [address] [place] [address] Abscess (Primary Dx); Cellulitis of face Discharge Disposition: Home or Self Care from Last 3 Months Social History Tobacco Use Types Packs/Day Years Used Date Smoking Tobacco: Never Assessed Comments Unknown Sex and Gender Information Value Date Recorded Sex Assigned at Female 05/14/2024 5:33 PM EDT Legal Sex Female 11:36 PM EST Gender Identity Female 05/14/2024 5:33 PM EDT Sexual Orientation Something else 05/14/2024 5: 33 PM EDT Obstetrics History Last Filed Vital Signs Vital Sign Reading Time Taken Comments Blood Pressure 125/85 05/14/2024 8:06 PM EDT Pulse 70 05/14/2024 8:06 PM EDT Temperature 37.3 ??C (99.1 ??F) 05/14/2024 8:06 PM ED T Respiratory Rate 1 05/14/2024 8:06 PM EDT Oxygen Saturation 100% 05/14/2024 8:06 PM EDT Inhaled Oxygen Concentration - - Weight 86.2 kg (190 lb) 05/14/2024 3:39 PM EDT Height 157.5 cm (5' 2 ) 05/14/2024 3:39 PM EDT Body Mass Index 34.75 05/14/2024 3:39 PM EDT Plan of Treatment Upcoming Encounters Date Type Department Care Team (Late st Contact Info) Description 12/12/2024 9:00 AM EDT Office Visit [facility] - [facility] [address] [place] [address] Xi Sanabria MD [address] [place], [place] Health Maintenance Due Date Last Done Comments Gonorrhea/Chlamydia Screening 2002 Pneumococcal Vaccine: Pediatrics (0 to 5 Years) and At-Risk Patients (6 to 64 Years) (1 of 1 - PPSV23) 2008 2002, 2002 Depression Screening 01/24/2022 HIV Screening 01/24/2022 Hepatitis C Screening 01/24/2022 Social Influencers of Health Screening 01/24/2022 Cervical Cancer Screening: Pap Smear 2023 COVID-19 Vaccine ( season) 2023 Meningococcal B Vaccine (2 of 2 - Trumenba SCDM 2-dose series) 03/15/2024 09/13/2023 Influenza Vaccine (Season Ended) 2024 02/05/2016, 01/14/2015, 01/03/2014, Additional history exists DTaP,Tdap,and Td Vaccines (8 - Td or Tdap) 09/12/2033 09/13/2023, 09/07/2013, 05/16/2006, Additional history exists Hepatitis B Vaccines Completed 2002, 2002, 2002 HIB Vaccines Completed 05/24/2003, 08/23, 2002, Additional history exists IPV Vaccines Completed 05/16/2006, 09/21, 2002, Additional history exists MMR Vaccines Completed 05/16/2006, 05/24/2003 Varicella Vaccines Completed 05/16/2006, 03/18/2003 HPV Vaccines Completed 01/14/2015, 12/22, 09/07/2013 Hepatitis A Vaccines Completed 02/05/2016, 01/15/20 15 Meningococcal ACWY Vaccine Completed 04/12/2019, RSV Immunization Patients Under 20 months Aged Out No longer eligible based on patient's age to complete this topic Insurance MEDICAID - [place] [facility] [employer] Care Teams Thread Milling Machine Set Up Operator Relationship Specialty Start Date End Date Xi Sanabria MD [address] [place] [address] PCP - General Internal Medicine 06/08/24
== END 2024-07-18 10:45 | disposition home or self-care (01) ==
LOC: HO.HGI 09:57
PROVIDERS: PCP Pediatrics Adolescent Medicine; Visit Provider Nurse Practitioner Family
DX: K21.9 Gastro-esophageal reflux disease without esophagitis (principal); R10.13 Epigastric pain; R11.0 Nausea; K59.01 Slow transit constipation; R11.15 Cyclical vomiting syndrome unrelated to migraine
CPT/HCPCS: 99214; G2211

== ENCOUNTER → 2024-07-18 09:57 | Outpatient (BNVA) | payer OTHER, SELFPAY | PROVIDERS: PCP Pediatrics Adolescent Medicine; Visit Provider Nurse Practitioner Family | DX: K21.9 Gastro-esophageal reflux disease without esophagitis (principal); K59.01 Slow transit constipation; R10.13 Epigastric pain; R11.0 Nausea; R11.15 Cyclical vomiting syndrome unrelated to migraine | CPT/HCPCS: 99212 ==